=== PATIENT | male | born 1945 | race Caucasian/White ===

== ENCOUNTER 2016-10-16 00:51 | Emergency (ER) | payer MEDICARE ==
[~2016-10-16] VITALS: Ht 165.1 cm; Wt 62.1 kg
[2016-10-16] MEDS ORDERED: HYDROCHLOROTH12.5 M2 ORAL (01:04)
[2016-10-16] MEDS ORDERED: LIPITOR80 MG ORAL (01:04)
[2016-10-16] MEDS ORDERED: PERCOCET 10-321 EAC1 PO (01:04)
[2016-10-16] MEDS ORDERED: TAMSULOSIN HCL0.4 MG ORAL (01:04)
[2016-10-16] MEDS ORDERED: AVAPRO75 MG ORAL (01:04)
--- NOTE | 2016-10-16 01:27 | Emergency Room Report ---
History of Present Illness General Chief Complaint: Male Urogenital Problems Source: Patient Present Illness HPI This is a 71-year-old male with a history of BPH. He's taken Flomax. He presents with chief complaint urinary retention last 24 hours. Suprapubic pain. Similar symptom in the past that resolved with Flomax and hydrochlorothiazide. Unable to urinate. No fever or chills. No trauma. No nausea no vomiting. Worse with palpation. Nothing made it better. Allergies: Coded Allergies: LATEX (Verified Allergy, Unknown, Rash, 10/16/16) Patient History Past Medical History: see triage record, old chart reviewed Past Surgical History: other Pertinent Family History: none Social History: Denies: smoking Immunizations: other Reviewed Nursing Documentation: PMH: Agreed, PSxH: Agreed Nursing Documentation-PMH Hx Hypertension: Yes Hx COPD: Yes - emphysema Review of Systems Eye: Denies: blurred vision, eye pain ENT: Denies: ear pain, nose congestion, throat swelling Respiratory: Denies: cough, shortness of breath Cardiovascular: Denies: chest pain, palpitations Gastrointestinal: Denies: abdominal pain, diarrhea, nausea, vomiting Genitourinary: Reports: retention Musculoskeletal: Denies: back pain, joint pain Skin: Denies: rash Neurological: Denies: headache, numbness Endocrine: Denies: increased thirst, increased urine Hematologic/Lymphatic: Denies: easy bruising All Other Systems: negative except mentioned in HPI Physical Exam Vital Signs Date Time Temp Pulse Resp B/P Pulse Ox O2 Delivery O2 Flow Rate FiO2 10/16/16 00:56 98.1 88 18 177/81 94 vitals showed hypertension Sp02 EP Interpretation: reviewed, normal General Appearance: well appearing, no apparent distress, alert Head: normocephalic, atraumatic Eyes: bilateral eye EOMI, bilateral eye PERRL ENT: hearing grossly normal, normal pharynx Neck: full range of motion, supple, no meningismus Respiratory: chest non-tender, lungs clear, normal breath sounds Cardiovascular #1: regular rate, rhythm, no murmur Gastrointestinal: normal bowel sounds, non tender, no mass, no organomegaly, no bruit, non-distended, other - Distended bladder Musculoskeletal: back normal, gait/station normal, normal range of motion Psychiatric: mood/affect normal Skin: warm/dry Medical Decision Making Diagnostic Impression: Primary Impression: Urinary retention due to benign prostatic hyperplasia ER Course Patient presents with urinary retention. He felt better after Pratt. Ideally, he should have the Pratt in place. He refused. He said that he will followup with his doctor tomorrow. If he still has retention another Pratt will need to be placed. He understand this. Last Vital Signs Date Time Temp Pulse Resp B/P Pulse Ox O2 Delivery O2 Flow Rate FiO2 10/16/16 00:56 98.1 88 18 177/81 94 Status: improved Disposition: HOME, SELF-CARE Condition: Stable Additional Instructions: Followup with your Dr. in one to 2 days. Return if symptom worsen. VIKA FINNEGAN M.D. Oct 16, 2016 01:27
[2016-10-16 02:13] VITALS: BP 143/83
== END 2016-10-16 02:13 | disposition home or self-care (01) ==
LOC: EMR 01:18
DX: R33.8 Other retention of urine (principal); N40.1 Benign prostatic hyperplasia with lower urinary tract symptoms; I10 Essential (primary) hypertension; J43.9 Emphysema, unspecified; Z91.040 Latex allergy status
CPT/HCPCS: 99283

== ENCOUNTER 2017-03-26 11:58 | Inpatient (IN) | payer MEDICARE ==
[2017-03-26] VITALS (14 sets, daily range): BP systolic 107–199; BP diastolic 56–100
[~2017-03-26] VITALS: Ht 165.1 cm; Wt 62.6 kg
[~2017-03-26 11:58] MED LIST: AVAPRO75 MG ORAL; HYDROCHLOROTH12.5 M2 ORAL; LIPITOR80 MG ORAL; PERCOCET 10-321 EAC1 PO; TAMSULOSIN HCL0.4 MG ORAL
[2017-03-26] MEDS ORDERED: metroNIDAZOLE 500mg 100 ML IV STA (12:12)
[2017-03-26] MEDS ORDERED: Cefepime HCl 1 GM in NS 55 ML IV STA (12:12)
[2017-03-26] MEDS ORDERED: Hydromorphone 0.5mg/0.5ml inj IVP ONE (12:15)
[2017-03-26] MEDS ORDERED: NS 1000ml 1,900 ML IVLG ONE (12:15)
[2017-03-26] MEDS ORDERED: Cefepime 1gm vial ONE (12:23)
--- NOTE | 2017-03-26 12:48 | Emergency Room Report ---
History of Present Illness General Chief Complaint: Abdominal Pain Source: Patient, Family Member Present Illness HPI The patient presents with severe abdominal pain that began yesterday and is constant and worsening. Before coming to the emergency department he also developed rigors. The pain is severe at this time left lower quadrant not radiating. Anxiety and shortness of breath with that but denies any chest pain. The patient states that 40 years ago he had the same type of problems related to intense stress in his life. He's going through one of the most stressful times he's ever had at the moment. Denies dysuria. He moved his bowels this morning and they were normal. He feels nauseated but has not been vomiting. The patient has severe spinal stenosis and this is also contributing to the pain. In December, he had bladder stones surgically removed. Since that time, he's had intermittent lower abdominal pain. 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 Nursing Documentation: PMH: Agreed, PSxH: Agreed Nursing Documentation-PMH Hx Cardiac Problems: No Hx Hypertension: Yes Hx Pacemaker: No Hx Asthma: No Hx COPD: No Hx Diabetes: No Hx Cancer: No Hx Gastrointestinal Problems: Yes - diverticulities Hx Dialysis: No History Of Psychiatric Problem: No Hx Neurological Problems: No Hx Cerebrovascular Accident: No Hx Seizures: No Review of Systems All Other Systems: negative except mentioned in HPI Physical Exam Vital Signs Date Time Temp Pulse Resp B/P Pulse Ox O2 Delivery O2 Flow Rate FiO2 03/26/17 12:11 99.0 58 20 110/60 95 Room Air Sp02 EP Interpretation: reviewed, normal General Appearance: alert, GCS 15, moderate distress Head: normocephalic Eyes: bilateral eye PERRL, bilateral eye normal inspection ENT: dry mucus membranes Neck: supple Respiratory: lungs clear, normal breath sounds, other - tachypnea Cardiovascular #1: tachycardia Cardiovascular #2: 2+ radial (R) Gastrointestinal: normal inspection, no mass, non-distended, no rebound, guarding - LLQ, tenderness, scaphoid Musculoskeletal: back normal, normal range of motion Neurologic: alert, oriented x3, grossly normal Psychiatric: anxious Skin: normal inspection, other - hot to touch Procedures Critical Care Time Critical Care Time Total Critical Care Time: 30 min bedside evaluation and treatment excludes procedures (EKG). Reason for critical care: sepsis resuscitation, appendicitis - eval and to OR emergently Possible complications: hypotension, hypertension, ME, shock, arrhythmias, metabolic acidosis, end organ damage, respiratory failure. Interventions: Sepsis resuscitation, antibiotics, emergent surgical consultation Course: Pt presented with severe distress with rigors and abdominal pain. Sepsis identified and fluid resuscitation and antibiotics started. Abdominal source ID - CT obtained. Appendicitis. Emergent surgical consultation and plan for emergent operation. Consultations: nursing staff, EMS, family, surgeon Performed by: Dr. Bah Tolerated well condition = serious/critical Medical Decision Making Diagnostic Impression: Primary Impression: Abdominal pain Qualified Codes: R10.32 - Left lower quadrant pain Additional Impressions: Sepsis Qualified Codes: A41.9 - Sepsis, unspecified organism Appendicitis Qualified Codes: K35.3 - Acute appendicitis with localized peritonitis ER Course Patient presents with rigors and abdominal pain in extremis. Differential includes sepsis, diverticulitis, appendicitis, perforated viscus, renal stone, pyelonephritis and UTI. Emergent evaluation with EKG, chest x-ray and treatment with IV hydration and analgesia is undertaken. In addition blood cultures lactate urinalysis and a CMP and CBC are ordered. Antibiotics begun. Much better after meds and IV hydration. Initial lactate and WBC elevated. CT with appendicitis. Emergent surgical consultation. Contact Dr. Ortega. Repeat lactate improved. Discussion with family. Improved, but serious/critical. Admitted to OR. Laboratory Tests Test 03/26/17 12:30 03/26/17 15:20 White Blood Count 17.7 K/UL (4.8-10.8) H Red Blood Count 4.59 M/UL (4.70-6.10) L Hemoglobin 15.0 G/DL (14.2-18.0) Hematocrit 44.9 % (42.0-52.0) Mean Corpuscular Volume 98 FL (80-99) Mean Corpuscular Hemoglobin 32.7 PG (27.0-31.0) H Mean Corpuscular Hemoglobin Concent 33.4 G/DL (32.0-36.0) Red Cell Distribution Width 13.7 % (11.6-14.8) Platelet Count 230 K/UL (150-450) Mean Platelet Volume 8.3 FL (6.5-10.1) Neutrophils (%) (Auto) % (45.0-75.0) Lymphocytes (%) (Auto) % (20.0-45.0) Monocytes (%) (Auto) % (1.0-10.0) Eosinophils (%) (Auto) % (0.0-3.0) Basophils (%) (Auto) % (0.0-2.0) Differential Total Cells Counted 100 Neutrophils % (Manual) 92 % (45-75) H Lymphocytes % (Manual) 3 % (20-45) L Monocytes % (Manual) 1 % (1-10) Eosinophils % (Manual) 0 % (0-3) Basophils % (Manual) 0 % (0-2) Band Neutrophils 4 % (0-8) Platelet Estimate Adequate Platelet Morphology Normal Red Blood Cell Morphology Normal Prothrombin Time 10.2 SEC (9.30-11.50) Prothrombin Time INR 1.0 (0.9-1.1) PTT 27 SEC (23-33) Sodium Level 141 mEQ/L (135-145) Potassium Level 3.7 mEQ/L (3.4-4.9) Chloride Level 100 mEQ/L (98-107) Carbon Dioxide Level 25 mEQ/L (20-30) Anion Gap 16 (5-15) H Blood Urea Nitrogen 20 mg/dL (7-23) Creatinine 1.0 mg/dL (0.7-1.2) Estimate Glomerular Filtration Rate mL/min (>60) Glucose Level 130 mg/dL (74-106) H Lactic Acid Level 4.40 mmol/L (0.66-2.22) H 1.30 mmol/L (0.66-2.22) Calcium Level 9.7 mg/dL (8.6-10.2) Total Bilirubin 1.4 mg/dL (0.0-1.2) H Direct Bilirubin 0.3 mg/dL (0.1-0.3) Aspartate Amino Transferase (AST) 29 U/L (5-40) Alanine Aminotransferase (ALT) 27 U/L (3-41) Alkaline Phosphatase 97 U/L (40-129) Total Creatine Kinase 425 U/L (26-140) H Troponin I < 0.30 ng/mL (<=0.30) Pro-B-Type Natriuretic Peptide 278 pg/mL (0-125) H Total Protein 7.4 g/dL (6.6-8.7) Albumin 4.4 g/dL (3.5-5.2) Globulin 3.0 g/dL Albumin/Globulin Ratio 1.4 (1.0-2.7) Lipase 15 U/L (< 60) Urine Color Pale yellow Urine Appearance Clear Urine pH 5 (4.5-8.0) Urine Specific [place] 1.010 (1.005-1.035) Urine Protein Negative (NEGATIVE) Urine Glucose (UA) Negative (NEGATIVE) Urine Ketones Negative (NEGATIVE) Urine Occult Blood 2+ (NEGATIVE) H Urine Nitrite Negative (NEGATIVE) Urine Bilirubin Negative (NEGATIVE) Urine Urobilinogen Normal MG/DL (0.0-1.0) Urine Leukocyte Esterase 1+ (NEGATIVE) H Urine RBC 0-2 /HPF (0 - 0) H Urine WBC 2-4 /HPF (0 - 0) Urine Squamous Epithelial Cells Occasional /LPF Urine Bacteria Occasional /HPF (NONE) EKG Diagnostic Results Rate: normal Rhythm: NSR ST Segments: no acute changes Rhythm Strip Diag. Results EP Interpretation: yes Rhythm: NSR, no PVC's, no ectopy Chest X-Ray Diagnostic Results Chest X-Ray Diagnostic Results : Chest X-Ray Ordered: Yes # of Views/Limited/Complete: 1 View Indication: Shortness of Breath EP Interpretation: Yes Interpretation: no consolidation, no effusion, no pneumothorax, other - inc cor and ? nodule Impression: Other Interpreting ER Provider: Electronically signed by Tawanda Bah MD CT/MRI/US Diagnostic Results CT/MRI/US Diagnostic Results : Imaging Test Ordered: CT abd pelvis Impression Impression: Evidence of acute primary versus secondary appendicitis with thickening of the wall, luminal dilatation and periappendiceal inflammation. There is evidence of inflammation involving surrounding structures such as the tip of the cecum and the origin of the terminal ileum which may be secondary to the appendicitis. However , it is possible that appendicitis a secondary phenomenon due to colitis and/or terminal ileitis, such as Crohn's. This is difficult to distinguish on imaging alone. Please correlate clinically. No evidence of abscess. Atherosclerotic vascular disease Basilar atelectasis Gallstones Spondylosis prostate hypertrophy Last Vital Signs Date Time Temp Pulse Resp B/P Pulse Ox O2 Delivery O2 Flow Rate FiO2 03/26/17 21:53 66 27 132/71 96 Simple Mask 6.0 03/26/17 21:43 97.9 Status: improved Disposition: ADMITTED INPATIENT Condition: Critical Tawanda Bah M.D. Mar 26, 2017 12:48
[2017-03-26] MEDS ORDERED: SYMBICORT 80-10.2 G1 IH (12:58)
[2017-03-26 13:07] LABS: PROTHROMBIN TIME 10.2 SEC (9.30-11.50)
[2017-03-26 13:11] LABS: MEAN CORPUSCULAR HEMOGLOBIN 32.7 PG (27.0-31.0); MEAN CORPUSCULAR HGB CONC 33.4 G/DL (32.0-36.0); MEAN CORPUSCULAR VOLUME 98 FL (80-99); MEAN PLATELET VOLUME 8.3 FL (6.5-10.1); PLATELET COUNT 230 K/UL (150-450); RED BLOOD COUNT 4.59 M/UL (4.70-6.10); RED CELL DISTRIBUTION WIDTH 13.7 % (11.6-14.8); WHITE BLOOD COUNT 17.7 K/UL (4.8-10.8)
[2017-03-26 13:27] LABS: TROPONIN I < 0.30 ng/mL (<=0.30)
[2017-03-26 13:28] LABS: ALANINE AMINOTRANSFERASE 27 U/L (3-41); ANION GAP 16 (5-15); ASPARTATE AMINO TRANSFERASE 29 U/L (5-40); CALCIUM 9.7 mg/dL (8.6-10.2); CARBON DIOXIDE 25 mEQ/L (20-30); CHLORIDE 100 mEQ/L (98-107); POTASSIUM 3.7 mEQ/L (3.4-4.9); SODIUM 141 mEQ/L (135-145)
[2017-03-26 13:29] LABS: ALBUMIN/GLOBULIN RATIO 1.4 (1.0-2.7); HEMOLYSIS 7; LIPASE 15 U/L (< 60); TOTAL PROTEIN 7.4 g/dL (6.6-8.7)
--- NOTE | 2017-03-26 13:30 | Diagnostic Imaging Report ---
Indication: Dyspnea Comparison: None A single view chest radiograph was obtained. Findings: No definite infiltrate or pulmonary vascular congestion identified. The heart is normal in size. The aorta is mildly enlarged consistent with atherosclerotic vascular disease. The bones are osteopenic. There are degenerative changes of the thoracic spine. Impression: No acute disease
[2017-03-26 13:42] LABS: REFLEX LACTIC ACID YES OR NO YES
[2017-03-26 13:54] LABS: BILIRUBIN,DIRECT 0.3 mg/dL (0.1-0.3)
[2017-03-26 14:09] LABS: BAND NEUTROPHILS % (MANUAL) 4 % (0-8); BASOPHILS % (MANUAL) 0 % (0-2); EOSINOPHILS % (MANUAL) 0 % (0-3); LYMPHOCYTES % (MANUAL) 3 % (20-45); NEUTROPHILS % (MANUAL) 92 % (45-75); PLATELET ESTIMATE ADEQUATE; PLATELET MORPHOLOGY NORMAL; TOTAL CELLS COUNTED 100
--- NOTE | 2017-03-26 15:16 | Diagnostic Imaging Report ---
Indication: Abdominal pain Technique: Continuous helical transaxial imaging of the abdomen and pelvis was obtained from the lung bases to the pubic symphysis during intravenous contrast administration. Coronal 2-D reformats were also obtained. Study obtained in a Siemens sensation [address] Total Dose length Product (DLP): [address] Dose Index Volume (CTDIvol): 17 mGy Comparison: None Findings: Reticular densities noted focally at the right lung base. There could be pneumonia. Please correlate clinically. Basilar atelectasis is also likely present at both lung bases. Aorta is mildly calcified. There are gallstones present. There is no biliary ductal dilatation definitely identified. Bilateral renal cysts of varying size are noted. Spleen is normal in size. The pancreas is unremarkable. The appendix is abnormal with periappendiceal soft tissue stranding and luminal dilatation with the diameter measurement of about 16 mm. Findings consistent with acute appendicitis. The tip of the appendix is also abnormally with the wall thickening. There is also some inflammation and thickening of the wall of the terminal ileum. There is narrowing of intervertebral discs and accompanying endplate osteophyte formation. Hypertrophied facet joints also demonstrated. Prostate is enlarged measuring 4.9 x 4.6 x 5.6 cm. Impression: Evidence of acute primary versus secondary appendicitis with thickening of the wall, luminal dilatation and periappendiceal inflammation. There is evidence of inflammation involving surrounding structures such as the tip of the cecum and the origin of the terminal ileum which may be secondary to the appendicitis. However, it is possible that appendicitis a secondary phenomenon due to colitis and/or terminal ileitis, such as Crohn's. This is difficult to distinguish on imaging alone. Please correlate clinically. No evidence of abscess. Atherosclerotic vascular disease Basilar atelectasis Gallstones Spondylosis prostate hypertrophy The CT scanner at [facility] is accredited by the [employer] and the scans are performed using dose optimization techniques as appropriate to a performed exam including Automatic Exposure control.
[2017-03-26 15:38] LABS: APPEARANCE,URINE CLEAR; KETONES,URINE NEGATIVE (NEGATIVE); LEUKOCYTE ESTERASE ,URINE 1+ (NEGATIVE); NITRITE,URINE NEGATIVE (NEGATIVE); PH,URINE 5 (4.5-8.0); PROTEIN,URINE NEGATIVE (NEGATIVE); UROBILINOGEN,URINE NORMAL MG/DL (0.0-1.0)
[2017-03-26 15:55] LABS: BACTERIA,URINE OCCASIONAL /HPF; RBC,URINE 0-2 /HPF (0 - 0); SQUAMOUS EPITHELIAL CELL,UR OCCASIONAL /LPF (NONE/OCC)
--- NOTE | 2017-03-26 17:13 | Pre-Procedure Note/Attestation ---
Pre-Procedure Note/Attestation Complete Prior to Procedure Planned Procedure: not applicable Procedure Narrative: Exploratory laparoscopy, appendectomy possible open Indications for Procedure Pre-Operative Diagnosis: R/O acute appendicitis Attestation I attest that I discussed the nature of the procedure; its benefits; risks and complications; and alternatives (and the risks and benefits of such alternatives ), prior to the procedure, with the patient (or the patient's legal insurance follow up representative). I attest that, if there was a reasonable possibility of needing a blood transfusion, the patient (or the patient's legal insurance follow up representative) was given the [facility] standardized written summary, pursuant to the [place] Blood Safety Act ([place] Health and Safety Code # 1645, as amended). I attest that I re-evaluated the patient just prior to the surgery and that there has been no change in the patient's H&P, except as documented below: JAN POLLOCK Mar 26, 2017 17:13
[2017-03-26] MEDS ORDERED: Piperacillin/Tazobactam 3.375 GM in NS 110 ML IVPB ONE (17:15)
[2017-03-26] MEDS ORDERED: Zosyn 3.375gm inj ONE (17:56)
--- NOTE | 2017-03-26 18:00 | Consultation ---
DATE OF CONSULTATION: 03/26/2017 PREOPERATIVE CONSULTATION CONSULTING PHYSICIAN: Cecy Hardwick M.D. REFERRING PHYSICIAN: Tawanda Bah M.D. from emergency room. REASON FOR CONSULTATION: Abdominal pain. HISTORY OF PRESENT ILLNESS: This is a 72-year-old male who presented to emergency room complaining of two days' history of abdominal pain. He stated that the pain was initially in the periumbilical and lower abdomen, and it has localized more on the right side. He denied any vomiting. He had a normal bowel movement this morning. He claims that he had a fever, but he denies any cough, dysuria, or frequency. He claimed that in the last two to three weeks, he had discomfort in the abdomen. PAST MEDICAL HISTORY: He denies asthma, diabetes, cardiac, or renal diseases. He has a history of hypertension. PAST SURGICAL HISTORY: He had a procedure for the kidney stone. ALLERGIES: He denies allergies, but aspirin causes stomach pain. MEDICATIONS: Currently, he takes medicine for hypertension. Please see the medicine reconciliation form. SOCIAL HISTORY: This is a 72-year-old male, , no children. 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 Denied smoking cigarettes. Drinks occasionally. REVIEW OF SYSTEMS: Noncontributory. PHYSICAL EXAMINATION: GENERAL: The patient appears to be a well-developed, well-nourished, 72-year-old male, lying on the gurney, complaining of abdominal pain. HEENT: Head is normocephalic and atraumatic. Eyes, pupils are equal, round, and reactive to light. Mouth is clear. NECK: There is no palpable thyromegaly or adenopathy. CHEST: Clear to auscultation and percussion. HEART: There is no gallop or murmur. S1 and S2 are within normal limits. ABDOMEN: Soft and flat with tenderness and guarding at the right lower quadrant and suprapubic, but this is more pronounced at the right lower quadrant. There is no palpable organomegaly. Bowel sounds are audible. GENITAL: Normal. EXTREMITIES: Within normal limits. LABORATORY AND DIAGNOSTIC DATA: CBC has shown a WBC of 17,700 with a left shift. Chemistry is basically within normal limits except for total bilirubin, which is 1.4. CPK is 425. CAT scan of the abdomen has shown inflammation of the appendix with periappendiceal stranding and inflammation, but the patient has severe inflammation of the cecum and even the terminal ileum. I had a long discussion with the radiologist who feels that besides the inflammation of the appendicitis, the patient might have ileitis and colitis, and there is a possibility that the appendicitis is secondary to inflammation of the colon. IMPRESSION: Abdominal pain, rule out acute appendicitis. RECOMMENDATION: As I mentioned above, the patient has inflammation of the appendix and acute appendicitis, but there is a chance of having a colitis. The condition was explained to the patient. It was explained that we will perform exploratory laparoscopy and design the treatment on the basis of findings. He understood and agreed for it. The treatment is going to be according to the findings. The appendectomy will be performed, but if the cecum is severely inflamed, he might require the resection of this area too. The patient understood and agreed to plan. Cecy Hardwick M.D. DR: KATHLEEN JOB#: [id number] CC:
[2017-03-26] MEDS ORDERED: DuoNeb 0.5-3(2.5)mg/3ml neb ONE (18:35)
[2017-03-26] MEDS: DuoNeb 0.5-3(2.5)mg/3ml neb HHN SCH ×2 (18:45→23:00)
[2017-03-26] MEDS ORDERED: LR 1000ml 1,000 ML IVLG SCH (19:01)
--- NOTE | 2017-03-26 19:03 | Anethesia Preoperative Eval ---
Anesthesia Pre-op PMH/ROS General Date of Evaluation: Mar 26, 2017 Time of Evaluation: 18:11 Anesthesiologist: Lexi ASA Score: ASA 3 - Emergency Mallampati Score Class I : Soft palate, uvula, fauces, pillars visible Class II: Soft palate, uvula, fauces visible Class III: Soft palate, base of uvula visible Class IV: Only hard plate visible Mallampati Classification: Class II Surgeon: Ronen Diagnosis: Abd Pain Surgical Procedure: Laparoscopic Appendectomy Anesthesia History: none Social History: smoking Family History: no anesthesia problems Allergies: Coded Allergies: LATEX (Verified Allergy, Unknown, Rash, 10/16/16) Medications: see eMAR Past Medical History Cardiovascular: Reports: HTN Pulmonary: Reports: other - Smoker Gastrointestinal/Genitourinary: Reports: other - Diverticulitis, Abd Pain Musculoskeletal/Integumentary: Reports: other - Spinal Stenosis, 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 Exam Physician Exam Last Vital Signs Date Time Temp Pulse Resp B/P Pulse Ox O2 Delivery O2 Flow Rate FiO2 03/26/17 18:48 72 03/26/17 18:33 134/78 03/26/17 17:30 98.9 18 99 Room Air 03/26/17 14:06 2.0 Constitutional: NAD Neurologic: CN 2-12 intact Cardiovascular: RRR Respiratory: CTA Gastrointestinal: S/NT/ND Airway Exam Mallampati Score: Class II MO: limited ROM: limited Teeth: missing, intact Anesthesia Pre-op A/P Labs Hematology Test 03/26/17 12:30 White Blood Count 17.7 K/UL (4.8-10.8) H Red Blood Count 4.59 M/UL (4.70-6.10) L Hemoglobin 15.0 G/DL (14.2-18.0) Hematocrit 44.9 % (42.0-52.0) Mean Corpuscular Volume 98 FL (80-99) Mean Corpuscular Hemoglobin 32.7 PG (27.0-31.0) H Mean Corpuscular Hemoglobin Concent 33.4 G/DL (32.0-36.0) Red Cell Distribution Width 13.7 % (11.6-14.8) Platelet Count 230 K/UL (150-450) Mean Platelet Volume 8.3 FL (6.5-10.1) Neutrophils (%) (Auto) % (45.0-75.0) Lymphocytes (%) (Auto) % (20.0-45.0) Monocytes (%) (Auto) % (1.0-10.0) Eosinophils (%) (Auto) % (0.0-3.0) Basophils (%) (Auto) % (0.0-2.0) Differential Total Cells Counted 100 Neutrophils % (Manual) 92 % (45-75) H Lymphocytes % (Manual) 3 % (20-45) L Monocytes % (Manual) 1 % (1-10) Eosinophils % (Manual) 0 % (0-3) Basophils % (Manual) 0 % (0-2) Band Neutrophils 4 % (0-8) Platelet Estimate Adequate Platelet Morphology Normal Red Blood Cell Morphology Normal Coagulation Test 03/26/17 12:30 Prothrombin Time 10.2 SEC (9.30-11.50) Prothromb Time International Ratio 1.0 (0.9-1.1) Activated Partial Thromboplast Time 27 SEC (23-33) Chemistry Test 03/26/17 12:30 03/26/17 15:20 Sodium Level 141 mEQ/L (135-145) Potassium Level 3.7 mEQ/L (3.4-4.9) Chloride Level 100 mEQ/L (98-107) Carbon Dioxide Level 25 mEQ/L (20-30) Anion Gap 16 (5-15) H Blood Urea Nitrogen 20 mg/dL (7-23) Creatinine 1.0 mg/dL (0.7-1.2) Estimat Glomerular Filtration Rate mL/min (>60) Glucose Level 130 mg/dL (74-106) H Lactic Acid Level 4.40 mmol/L (0.66-2.22) H 1.30 mmol/L (0.66-2.22) Calcium Level 9.7 mg/dL (8.6-10.2) Total Bilirubin 1.4 mg/dL (0.0-1.2) H Direct Bilirubin 0.3 mg/dL (0.1-0.3) Aspartate Amino Transf (AST/SGOT) 29 U/L (5-40) Alanine Aminotransferase (ALT/SGPT) 27 U/L (3-41) Alkaline Phosphatase 97 U/L (40-129) Total Creatine Kinase 425 U/L (26-140) H Troponin I < 0.30 ng/mL (<=0.30) Pro-B-Type Natriuretic Peptide 278 pg/mL (0-125) H Total Protein 7.4 g/dL (6.6-8.7) Albumin 4.4 g/dL (3.5-5.2) Globulin 3.0 g/dL Albumin/Globulin Ratio 1.4 (1.0-2.7) Lipase 15 U/L (< 60) Risk Assessment & Plan Assessment: ASA 3E Plan: GA BIS, Glidescope Status Change Before Surgery: No Pre-Antibiotics Dru Grams Ancef IV Given Within 1 Hr of Incision: Yes Time Given: 18:36 Ken Elliott MD Mar 26, 2017 19:03
[2017-03-26] MEDS ORDERED: Oxycodone/Acetaminophen 5-325 ORAL PRN (19:15)
[2017-03-26] MEDS ORDERED: Atropine Inj 1mg/10ml Syr IV PRN (19:15)
[2017-03-26] MEDS ORDERED: Ketorolac 60mg Inj IV PRN (19:15)
[2017-03-26] MEDS ORDERED: Metoclopramide 10mg/2ml Inj IVP PRN ×2 (19:15→23:00)
[2017-03-26] MEDS ORDERED: Hydromorphone 0.5mg/0.5ml inj IVP PRN ×2 (19:15→23:00)
[2017-03-26] MEDS ORDERED: fentaNYL 100 mcg/2 mL IV PRN (19:15)
[2017-03-26] MEDS ORDERED: Ketorolac 30mg Inj IV PRN (19:15)
[2017-03-26] MEDS ORDERED: Meperidine 25mg/0.5ml Inj (FOR RIGORS ONLY) IV PRN (19:15)
[2017-03-26] MEDS ORDERED: DiphenhydrAMINE 50mg/ml Inj IVP PRN (19:15)
[2017-03-26] MEDS ORDERED: Norco 7.5mg/325mg tab ORAL PRN (19:15)
[2017-03-26] MEDS ORDERED: Norco 5mg/325mg tab ORAL PRN (19:15)
[2017-03-26] MEDS ORDERED: Midazolam 2mg/2ml Inj IVP PRN (19:15)
[2017-03-26] MEDS ORDERED: LORazepam Inj 2mg/ml 1ml IV PRN (19:15)
[2017-03-26] MEDS ORDERED: NS w/KCl 20mEq 1,000 ML IV SCH (19:30)
[2017-03-26] MEDS ORDERED: Bupivacaine w/Epi 0.5% 30ml Vial INJ ONE (19:58)
[2017-03-26] MEDS ORDERED: Glycopyrrolate 0.2mg/ml 1ml Vial ONE (20:00)
[2017-03-26] MEDS ORDERED: Neostigmine 1mg/ml 10ml Inj ONE (20:00)
[2017-03-26] MEDS ORDERED: LR 1000ml ONE (20:00)
[2017-03-26] MEDS ORDERED: Sterile Water Irrig 1000ml IRRIG ONE (20:00)
[2017-03-26] MEDS ORDERED: Lidocaine 1% MPF 10mg/ml 5ml ONE (20:00)
[2017-03-26] MEDS ORDERED: Propofol 10mg/ml 20ml IV ONE (20:00)
[2017-03-26] MEDS ORDERED: Dexamethasone 4mg/ml vial ONE (20:00)
[2017-03-26] MEDS ORDERED: Alfentanil 2ml Inj ONE (20:00)
[2017-03-26] MEDS ORDERED: Zemuron 50mg/5ml Inj IV ONE (20:00)
[2017-03-26] MEDS ORDERED: NS Irrig 1000ml ONE (20:00)
--- NOTE | 2017-03-26 20:50 | Immediate Post-Op Evaluation ---
Immediate Post-Op Evalulation Immediate Post-Op Evalulation Procedure: Laparoscopic Appendectomy Date of Evaluation: Mar 26, 2017 Time of Evaluation: 21:54 IV Fluids: 800 LR Blood Products: 0 Estimated Blood Loss: 10 Urinary Output: 0 Blood Pressure Systolic: 200 Blood Pressure Diastolic: 91 Pulse Rate: 103 Respiratory Rate: 16 O2 Sat by Pulse Oximetry: 99 Temperature (Fahrenheit): 97.9 Pain Score (1-10): 2 Nausea: No Vomiting: No Complications 0 Patient Status: awake, reacts, patent, extubated, none Hydration Status: adequate Dru Gram Ancef IV Given Within 1 Hr of Incision: Yes Time Given: 18:16 Ken Elliott MD Mar 26, 2017 20:50
--- NOTE | 2017-03-26 21:31 | Brief Operative Note ---
Immediate Post Operative Note Operative Note Pre-op Diagnosis: R/O acute appendicitis Post-op Diagnosis: Acute appendicitis Post-op Diagnosis: same as pre-op Findings: consistent w/pre-op dx studies Surgeon: MD Martha Build And Deployment Engineer: none Anesthesiologist: Dr. Elliott Anesthesia: general Specimen: yes Complications: none Condition: stable Estimated Blood Loss: minimal Drains: none Implant(s) used?: No JAN POLLOCK Mar 26, 2017 21:31
[2017-03-26] MEDS ORDERED: Piperacillin/Tazobactam 3.375 GM in D5W 110 ML IVPB SCH (22:00)
--- NOTE | 2017-03-26 22:15 | Pre-op HX & Phy Repo 2 SIG ---
DATE OF ADMISSION: 03/26/2017 REASON FOR ADMISSION: Probable appendicitis. HISTORY OF PRESENT ILLNESS: This 72-year-old white male presented to the emergency room with two days of progressive right lower quadrant abdominal pain with anorexia and nausea preceding. The pain worsened today and was more localized to the lower abdomen and periumbilical region, right greater than left. He had a normal bowel movement this morning, some nausea, but no vomiting. He had some fevers, but no other constitutional symptoms. The patient was seen in the emergency room where a CAT scan of the abdomen was obtained suggesting acute versus secondary appendicitis with involvement of the terminal ileum and colon. The possibility of a primary colitis could not be excluded. PAST MEDICAL HISTORY: COPD, hypertension, spinal stenosis, and hyperlipidemia. PAST SURGICAL HISTORY: Prior surgeries include rhinoplasty and right radial nerve surgery as well as cystoscopy for nephrolithiasis. ALLERGIES: Latex. MEDICATIONS: Prior to admission reviewed and reconciled. SOCIAL HISTORY: Quit smoking, 30+ pack years. No alcohol or substance abuse. He is and lives with family members. 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 FAMILY HISTORY: Noncontributory. REVIEW OF SYSTEMS: No fevers or chills. Some cough. No sputum production. No recent steroid use. He does have chronic back pain. He has not had any prior exertional chest pain or history of myocardial infarction, and has not had a stress test in the past. There is no history of blood clots in the legs . Denies any recurring history of kidney stones. There is no history of diabetes or thyroid disorder. He is on anti-lipid drugs. There is no history of seizure or stroke. There is no history of bleeding diatheses. PHYSICAL EXAMINATION: GENERAL: Well developed, well nourished, in no distress. VITAL SIGNS: Blood pressure 132/75, pulse 89, respiratory rate 18, and temperature 99.1. HEENT: Conjunctivae pink. Sclerae are anicteric. Oropharynx clear. Mucous membranes moist. NECK: Supple. Jugular venous pressure normal. LUNGS: Clear. CARDIAC: Regular rhythm and rate. Normal S1 and S2. No murmur, rub, or gallop. ABDOMEN: Soft with mild tenderness in the right lower quadrant. No guarding or rebound. SKIN: No skin changes. EXTREMITIES: Good pulses. No edema. NEUROLOGIC: Nonfocal. LABORATORY DATA: Lactic acid #1 is 4.4, subsequent lactic acid 1.3. Troponin negative. Pro-natriuretic peptide 258. Albumin 4.4. Liver function tests notable for mild elevation of total bilirubin to 1.4. Glucose 130, BUN 20, creatinine 1.0, and potassium 3.7. White count 17.7, hemoglobin 15. INR 1. Urinalysis, no active sediment. IMPRESSION: 1. Probable acute appendicitis versus possible colitis. 2. Sepsis. 3. Lactic acidosis. 4. Chronic obstructive pulmonary disease. 5. Hypertension. PLAN: 1. Broad-spectrum antibiotics for coverage of enteric pathogens. 2. DVT prophylaxis postoperatively. 3. Inhaled bronchodilators and pulmonary hygiene. 4. IV hydralazine p.r.n. for blood pressure elevation. 5. Proceed with exploratory laparotomy as discussed with surgeon with minimally increased perioperative cardiopulmonary risk under general anesthesia. Tawanda Ortega M.D. DR: LYNETTE JOB#: [id number] CC:
--- NOTE | 2017-03-26 22:45 | Operative Note - Dictated ---
DATE OF OPERATION: 03/26/2017 PREOPERATIVE DIAGNOSIS: Rule out acute appendicitis. POSTOPERATIVE DIAGNOSIS: Acute appendicitis. OPERATION: Laparoscopy appendectomy. COMPLICATION: None. SURGEON: Cecy Hardwick M.D. SCHEDULING REPRESENTATIVE: None. ANESTHESIA: General with endotracheal tube. ANESTHESIOLOGIST: Ken Elliott M.D. INDICATION: This is a 72-year-old male, who presented with abdominal pain for two days. The pain initially was periumbilical and then it localized at right lower quadrant. Physical examination showed tenderness and rebound tenderness with guarding. CBC showed a WBC of 17,700 with a left shift. CAT scan of the abdomen showed dilated and inflamed gall appendix with periappendiceal inflammation, but the patient had severe inflammation of the cecal and even the distal ileum. DESCRIPTION OF PROCEDURE: The patient was placed supine on the operating table and after general anesthesia with endotracheal tube, the abdomen was properly prepped and draped. Initially, a small incision was made above the umbilicus through which a Veress needle was introduced into the intraperitoneal cavity. This cavity was insufflated up to 15 mmHg and then the Veress needle was removed and a 5 mm trocar was placed in the intraperitoneal cavity through the incision above the umbilicus. A laparoscope and camera was introduced into the intraperitoneal cavity through the trocar above the umbilicus. Under direct vision, a 5 mm trocar was placed at the suprapubic area and a 12 mm trocar was placed at the left lower quadrant of the abdomen. Initially a rapid exploration was performed, which showed the diaphragms to be normal. The part of the stomach that could be seen was normal. The liver was normal. Gallbladder showed a kind of chronic cholecystitis, but there was no stone. The bowels were covered with omentum and the patient has a right inguinal hernia. An exploration of the right lower quadrant cavity was performed and the cecum was identified. Below the cecum it was noticed that the patient had extensive inflammatory changes with fibrin deposit and small amount of fluid. Further exploration showed the appendix in this area, which was severely distended and inflamed. The appendix and mesoappendix was exposed and isolated and then the mesoappendix was ligated and transected with the help of the JAQUELINE stapler and then the appendix was ligated and transected at the base with the help of another JAQUELINE stapler. The appendix was removed from the intraperitoneal abdominal cavity with the help of the Endo pouch. After removal of the appendix, the intraperitoneal cavity was thoroughly irrigated with antibiotic solution especially the right paracolic gutter and the pelvis. Another exploration was performed. There was no complication of bleeding. The trocars were removed under direct vision. The incisions were infiltrated with total of 30 mL of Marcaine 0.25% and then the incision on the fascia at the left lower quadrant was approximated with a [id number] suture of #0 Vicryl. The subcutaneous tissue was approximated with 4-0 chromic and the skin incisions were approximated with running subcuticular suture of 4-0 chromic. The patient tolerated the procedure very well and was transferred to recovery room in stable condition and extubated. The sponge and needle counts correct. Estimated blood loss was 5 mL. Condition of the patient at the end of procedure is stable. Cecy Hardwick M.D. DR: TERESITA JOB#: [id number] CC:
[2017-03-26] MEDS ORDERED: Acetaminophen 650 MG SUPP RECTAL PRN (23:00)
[2017-03-26 23:11] LABS: ABG ALLEN TEST POSITIVE; ABG BASE EXCESS 3.6; ABG PCO2 41.6 mmHg (35.0-45.0)
[2017-03-26] MEDS: D5 1/2NS w/KCl 20mEq 1,000 ML IV SCH (23:48)
[2017-03-26] MEDS: Piperacillin/Tazobactam 3.375 GM in D5W 110 ML IVPB SCH (23:48)
[2017-03-27 01:00] VITALS: BP 120/70
[2017-03-27] MEDS: DuoNeb 0.5-3(2.5)mg/3ml neb HHN SCH ×6 (03:00→23:00)
[2017-03-27 04:00] VITALS: BP 118/67
[2017-03-27 05:09] LABS: MEAN CORPUSCULAR HEMOGLOBIN 32.4 PG (27.0-31.0); MEAN CORPUSCULAR HGB CONC 32.6 G/DL (32.0-36.0); MEAN CORPUSCULAR VOLUME 100 FL (80-99); MEAN PLATELET VOLUME 9.8 FL (6.5-10.1); PLATELET COUNT 182 K/UL (150-450); RED BLOOD COUNT 3.61 M/UL (4.70-6.10); RED CELL DISTRIBUTION WIDTH 13.7 % (11.6-14.8); WHITE BLOOD COUNT 16.5 K/UL (4.8-10.8)
[2017-03-27 05:34] LABS: ALANINE AMINOTRANSFERASE 45 U/L (3-41); ALBUMIN/GLOBULIN RATIO 1.3 (1.0-2.7); ANION GAP 9 (5-15); ASPARTATE AMINO TRANSFERASE 37 U/L (5-40); CALCIUM 7.9 mg/dL (8.6-10.2); CARBON DIOXIDE 23 mEQ/L (20-30); CHLORIDE 105 mEQ/L (98-107); CREATININE 0.9 mg/dL (0.7-1.2); HEMOLYSIS 6; SODIUM 137 mEQ/L (135-145); TOTAL PROTEIN 5.6 g/dL (6.6-8.7)
[2017-03-27 05:36] LABS: THYROID STIMULATING HORMONE 0.419 uIU/mL (0.300-4.500)
[2017-03-27] MEDS: Piperacillin/Tazobactam 3.375 GM in D5W 110 ML IVPB SCH ×3 (05:39→21:28)
[2017-03-27] MEDS: Heparin 5000 units/ml inj SUBQ SCH ×3 (05:41→21:28)
[2017-03-27 07:36] LABS: BAND NEUTROPHILS % (MANUAL) 0 % (0-8); BASOPHILS % (MANUAL) 1 % (0-2); EOSINOPHILS % (MANUAL) 0 % (0-3); LYMPHOCYTES % (MANUAL) 2 % (20-45); NEUTROPHILS % (MANUAL) 95 % (45-75); PLATELET ESTIMATE ADEQUATE; PLATELET MORPHOLOGY NORMAL; TOTAL CELLS COUNTED 100
[2017-03-27 08:00] VITALS: BP 140/73
[2017-03-27] MEDS: D5 1/2NS w/KCl 20mEq 1,000 ML IV SCH (09:03)
[2017-03-27] MEDS: Pantoprazole Inj IVP SCH (09:03)
[2017-03-27] MEDS ORDERED: Piperacillin/Tazobactam 3.375 GM in D5W 110 ML IVPB SCH ×2 (10:00→14:00)
--- NOTE | 2017-03-27 11:18 | Diagnostic Imaging Report ---
Indication: Dyspnea Comparison: 03/26/17 A single view chest radiograph was obtained. Findings: Interstitial markings are prominent bilaterally. Findings may be due to pneumonitis. Interstitial edema is possible. Heart appears slightly enlarged. Lung volumes are low. Impression: Interstitial pneumonitis versus edema. Please correlate clinically.
[2017-03-27 11:54] VITALS: BP 124/82
--- NOTE | 2017-03-27 13:15 | Progress Note ---
DATE: 03/27/2017 INTERNAL MEDICINE AND CARDIOLOGY PROGRESS NOTE SUBJECTIVE: The patient is status post appendectomy last night. No complications noted. He does not have pain, shortness of breath, nausea, or vomiting at this time. PHYSICAL EXAMINATION: VITAL SIGNS: Blood pressure is 140/73, pulse rate 75, and respiratory rate 20. Afebrile. NECK: Supple. LUNGS: With few rales. CARDIAC: Regular rhythm and rate. Normal S1 and S2 with no murmur. ABDOMEN: Slightly distended. Mildly tender in the right lower quadrant. No guarding. No signs of bleeding. EXTREMITIES: Without edema. Chest x-ray reveals interstitial disease versus edema. LABORATORY AND DIAGNOSTIC DATA: BUN 17 and creatinine 0.9. Potassium 4 and glucose 217. Albumin is 3.2. White count is 16.5. IMPRESSION: 1. Appendicitis, status post appendectomy. 2. Abdominal sepsis. 3. Leukocytosis. 4. No clinical signs of acute congestive heart failure. 5. Resolved lactic acidosis. 6. Mild protein calorie malnutrition. 7. Hyperglycemia. 8. Hypertension. PLAN: Adjust IV fluids. . IV antibiotics. DVT prophylaxis. Diet per surgeon once bowel function recovers. IV antihypertensives until tolerating oral intake. Glucose monitoring with insulin by sliding scale. Tawanda Ortega M.D. DR: BETO JOB#: [id number] CC:
[2017-03-27] MEDS: NS w/KCl 20mEq 1,000 ML IV SCH ×3 (13:16→23:43)
--- NOTE | 2017-03-27 13:24 | 48 Hour Post Anesthesia Eval ---
Post Anesthesia Evaluation Procedure: Laparoscopic Appendectomy Date of Evaluation: Mar 27, 2017 Time of Evaluation: 13:23 Blood Pressure Systolic: 136 0: 78 Pulse Rate: 72 Respiratory Rate: 20 Temperature (Fahrenheit): 97.6 O2 Sat by Pulse Oximetry: 98 Airway: patent Nausea: No Vomiting: No Pain Intensity: 3 Hydration Status: adequate Cardiopulmonary Status: stable Mental Status/LOC: patient returned to baseline Follow-up Care/Observations: n/a Post-Anesthesia Complications: none Follow-up care needed: N/A FRITZ MCCLURE M.D. Mar 27, 2017 13:24
--- NOTE | 2017-03-27 13:24 | General Surgery Progress Note ---
General Surgery-Progress Note Subjective Symptoms: improved Objective Last 24 Hour Vital Signs Date Time Temp Pulse Resp B/P Pulse Ox O2 Delivery O2 Flow Rate FiO2 03/27/17 12:00 74 03/27/17 11:54 98.1 80 18 124/82 98 Nasal Cannula 2.0 03/27/17 11:18 77 16 100 Nasal Cannula 3.0 03/27/17 11:02 77 17 97 Nasal Cannula 2.0 03/27/17 08:00 98.1 75 20 140/73 97 Nasal Cannula 2.0 03/27/17 08:00 64 03/27/17 07:47 78 15 100 Nasal Cannula 3.0 03/27/17 07:36 75 16 97 Nasal Cannula 3.0 03/27/17 07:36 75 16 Nasal Cannula 3.0 03/27/17 04:00 98.8 67 18 118/67 98 Nasal Cannula 2.0 03/27/17 04:00 65 03/27/17 03:09 Nasal Cannula 03/27/17 03:08 Nasal Cannula 03/27/17 01:00 97.9 65 18 120/70 99 Nasal Cannula 3.0 03/27/17 00:00 87 03/26/17 23:49 98.1 64 18 107/56 92 Nasal Cannula 2.0 03/26/17 23:14 Room Air 03/26/17 23:14 Room Air 03/26/17 23:00 98.0 69 26 123/59 95 Nasal Cannula 3.0 03/26/17 22:45 72 23 124/74 95 Simple Mask 6.0 03/26/17 22:30 74 33 152/83 95 Simple Mask 6.0 03/26/17 22:15 74 37 135/66 95 Simple Mask 6.0 03/26/17 22:00 66 27 135/66 96 Simple Mask 6.0 03/26/17 21:53 66 27 132/71 96 Simple Mask 6.0 03/26/17 21:48 75 33 197/87 96 Simple Mask 6.0 03/26/17 21:43 97.9 110 32 199/100 98 Simple Mask 6.0 03/26/17 21:43 103 16 99 03/26/17 19:57 99.1 75 18 116/65 93 Room Air 03/26/17 19:00 76 18 99 Room Air 03/26/17 18:48 72 03/26/17 18:45 67 18 99 Room Air 2.0 03/26/17 18:45 67 18 Room Air 03/26/17 18:33 134/78 03/26/17 17:30 98.9 79 18 142/60 99 Room Air 03/26/17 15:30 98.1 75 18 130/66 98 03/26/17 14:06 99.1 89 18 132/75 96 Nasal Cannula 2.0 I&O Intake and Output 03/26/17 03/27/17 19:00 07:00 Intake Total 1735.875 ml Output Total 300 ml 560 ml Balance -300 ml 1175.875 ml Intake IV Total 1735.875 ml Output Urine Total 300 ml 550 ml Estimated Blood Loss 10 ml # Bowel Movements 1 Dressing: dry Drains: none Respiratory: clear Abdomen: soft, flat, tenderness, absent bowel sounds Extremities: no tenderness Laboratory Tests Test 03/26/17 15:20 03/26/17 22:37 03/27/17 03:35 Urine Color Pale yellow Urine Appearance Clear Urine pH 5 (4.5-8.0) Urine Specific [place] 1.010 (1.005-1.035) Urine Protein Negative (NEGATIVE) Urine Glucose (UA) Negative (NEGATIVE) Urine Ketones Negative (NEGATIVE) Urine Occult Blood 2+ (NEGATIVE) H Urine Nitrite Negative (NEGATIVE) Urine Bilirubin Negative (NEGATIVE) Urine Urobilinogen Normal MG/DL (0.0-1.0) Urine Leukocyte Esterase 1+ (NEGATIVE) H Urine RBC 0-2 /HPF (0 - 0) H Urine WBC 2-4 /HPF (0 - 0) Urine Squamous Epithelial Cells Occasional /LPF Urine Bacteria Occasional /HPF (NONE) Lactic Acid Level 1.30 mmol/L (0.66-2.22) Arterial Blood pH 7.341 (7.350-7.450) Arterial Blood Partial Pressure CO2 41.6 mmHg (35.0-45.0) Arterial Blood Partial Pressure O2 135.0 mmHg (75.0-100.0) H Arterial Blood HCO3 22.0 mmol/L (22.0-26.0) Arterial Blood Oxygen Saturation 98.3 % (92.0-98.0) H Arterial Blood Base Excess 3.6 Gautam Test Positive White Blood Count 16.5 K/UL (4.8-10.8) H Red Blood Count 3.61 M/UL (4.70-6.10) L Hemoglobin 11.7 G/DL (14.2-18.0) L Hematocrit 35.9 % (42.0-52.0) L Mean Corpuscular Volume 100 FL (80-99) H Mean Corpuscular Hemoglobin 32.4 PG (27.0-31.0) H Mean Corpuscular Hemoglobin Concent 32.6 G/DL (32.0-36.0) Red Cell Distribution Width 13.7 % (11.6-14.8) Platelet Count 182 K/UL (150-450) Mean Platelet Volume 9.8 FL (6.5-10.1) Neutrophils (%) (Auto) % (45.0-75.0) Lymphocytes (%) (Auto) % (20.0-45.0) Monocytes (%) (Auto) % (1.0-10.0) Eosinophils (%) (Auto) % (0.0-3.0) Basophils (%) (Auto) % (0.0-2.0) Differential Total Cells Counted 100 Neutrophils % (Manual) 95 % (45-75) H Lymphocytes % (Manual) 2 % (20-45) L Monocytes % (Manual) 2 % (1-10) Eosinophils % (Manual) 0 % (0-3) Basophils % (Manual) 1 % (0-2) Band Neutrophils 0 % (0-8) Platelet Estimate Adequate Platelet Morphology Normal Red Blood Cell Morphology Normal Sodium Level 137 mEQ/L (135-145) Potassium Level 4.0 mEQ/L (3.4-4.9) Chloride Level 105 mEQ/L (98-107) Carbon Dioxide Level 23 mEQ/L (20-30) Anion Gap 9 (5-15) Blood Urea Nitrogen 17 mg/dL (7-23) Creatinine 0.9 mg/dL (0.7-1.2) Estimat Glomerular Filtration Rate mL/min (>60) Glucose Level 217 mg/dL (74-106) H Calcium Level 7.9 mg/dL (8.6-10.2) L Total Bilirubin 0.9 mg/dL (0.0-1.2) Aspartate Amino Transf (AST/SGOT) 37 U/L (5-40) Alanine Aminotransferase (ALT/SGPT) 45 U/L (3-41) H Alkaline Phosphatase 107 U/L (40-129) Total Protein 5.6 g/dL (6.6-8.7) L Albumin 3.2 g/dL (3.5-5.2) L Globulin 2.4 g/dL Albumin/Globulin Ratio 1.3 (1.0-2.7) Thyroid Stimulating Hormone (TSH) 0.419 uIU/mL (0.300-4.500) Assessment Post-op Diagnosis Acute appendicitis Plan Additional Comments continue IV antibiotics JAN POLLOCK Mar 27, 2017 13:24
[2017-03-27 16:00] VITALS: BP 129/71
[2017-03-27] MEDS: HYDROmorphone 1mg/ml Carpuject IVP PRN (17:07)
[2017-03-27 20:00] VITALS: BP 136/74
[2017-03-28] VITALS (7 sets, daily range): BP systolic 133–196; BP diastolic 79–103
[2017-03-28] MEDS: DuoNeb 0.5-3(2.5)mg/3ml neb HHN SCH ×6 (03:00→23:15)
[2017-03-28 04:46] LABS: BASOPHILS % (AUTO) 0.3 % (0.0-2.0); EOSINOPHILS % (AUTO) 0.4 % (0.0-3.0); LYMPHOCYTES % (AUTO) 11.4 % (20.0-45.0); MEAN CORPUSCULAR HEMOGLOBIN 31.7 PG (27.0-31.0); MEAN CORPUSCULAR HGB CONC 32.4 G/DL (32.0-36.0); MEAN CORPUSCULAR VOLUME 98 FL (80-99); MEAN PLATELET VOLUME 7.8 FL (6.5-10.1); MONOCYTES % (AUTO) 8.2 % (1.0-10.0); NEUTROPHILS % (AUTO) 79.7 % (45.0-75.0); PLATELET COUNT 194 K/UL (150-450); RED CELL DISTRIBUTION WIDTH 13.7 % (11.6-14.8)
[2017-03-28 05:07] LABS: ALANINE AMINOTRANSFERASE 31 U/L (3-41); ALBUMIN/GLOBULIN RATIO 1.3 (1.0-2.7); ANION GAP 8 (5-15); ASPARTATE AMINO TRANSFERASE 21 U/L (5-40); CALCIUM 8.4 mg/dL (8.6-10.2); CARBON DIOXIDE 25 mEQ/L (20-30); CHLORIDE 109 mEQ/L (98-107); CREATININE 0.9 mg/dL (0.7-1.2); HEMOLYSIS 6; MAGNESIUM 1.7 mg/dL (1.7-2.5); POTASSIUM 3.5 mEQ/L (3.4-4.9); SODIUM 142 mEQ/L (135-145); TOTAL PROTEIN 5.9 g/dL (6.6-8.7)
[2017-03-28] MEDS: Piperacillin/Tazobactam 3.375 GM in D5W 110 ML IVPB SCH ×3 (05:57→21:22)
[2017-03-28] MEDS: Heparin 5000 units/ml inj SUBQ SCH ×3 (05:58→22:47)
[2017-03-28] MEDS: Pantoprazole Inj IVP SCH (08:57)
[2017-03-28] MEDS: HYDROmorphone 1mg/ml Carpuject IVP PRN ×2 (10:23→13:23)
[2017-03-28] MEDS: NS w/KCl 20mEq 1,000 ML IV SCH ×2 (11:24→23:00)
[2017-03-28] MEDS ORDERED: Irbesartan 150mg tablet ORAL ONE (12:00)
[2017-03-28] MEDS: Tamsulosin 0.4mg cap ORAL SCH ×2 (12:47→18:32)
--- NOTE | 2017-03-28 13:32 | Infectious Diseases Prog Note ---
Assessment/Plan Assessment/Plan Full consult dictated: A) 1) gram variable rods bacteremia 2) may be gram neg vs diphtheroids - d/w microbiology 3) s/p appendectomy with sepsis and leukocytosis 4) pmh noted P) 1) zosyn, add vancomycin until final identification of blood culture 2) watch labs 3) communicated with Dr. Ortega 4) thanks Subjective Allergies: Coded Allergies: LATEX (Verified Allergy, Unknown, Rash, 10/16/16) Objective Vital Signs Last 24 Hour Vital Signs Date Time Temp Pulse Resp B/P Pulse Ox O2 Delivery O2 Flow Rate FiO2 03/28/17 12:47 136/66 03/28/17 12:00 73 03/28/17 11:35 78 18 99 Nasal Cannula 1.0 03/28/17 11:28 71 18 96 Room Air 03/28/17 08:58 181/96 03/28/17 08:00 79 03/28/17 08:00 97.9 79 20 181/96 96 Nasal Cannula 2.0 03/28/17 07:35 89 18 97 Nasal Cannula 1.0 03/28/17 07:23 71 18 92 Room Air 03/28/17 07:22 96 Nasal Cannula 2.0 03/28/17 07:21 Nasal Cannula 2.0 03/28/17 04:00 72 03/28/17 03:41 97.7 63 16 157/82 97 Nasal Cannula 2.0 03/28/17 03:11 Nasal Cannula 03/28/17 03:09 Nasal Cannula 03/28/17 00:00 98.0 66 18 152/79 99 Nasal Cannula 2.0 03/28/17 00:00 71 03/27/17 23:28 Nasal Cannula 03/27/17 23:27 Nasal Cannula 03/27/17 20:00 76 03/27/17 20:00 98.1 84 18 136/74 96 Nasal Cannula 2.0 03/27/17 19:30 81 16 100 Nasal Cannula 2.0 03/27/17 19:27 Nasal Cannula 2.0 28 03/27/17 19:26 97 Nasal Cannula 2.0 28 03/27/17 19:26 Nasal Cannula 2.0 28 03/27/17 19:25 77 16 Nasal Cannula 3.0 03/27/17 19:25 77 17 96 Nasal Cannula 2.0 03/27/17 17:37 98.1 03/27/17 16:00 98.1 80 18 129/71 95 Nasal Cannula 03/27/17 16:00 69 03/27/17 15:23 88 16 100 Nasal Cannula 2.0 03/27/17 15:11 85 17 95 Nasal Cannula 2.0 Height (Feet): 5 Height (Inches): 5.00 Weight (Pounds): 138 Microbiology Date/Time Source Procedure Growth Status 03/26/17 12:30 Blood Blood Culture - Preliminary Resulted 03/26/17 12:30 Blood Blood Culture - Preliminary Resulted Laboratory Tests Test 03/28/17 04:30 White Blood Count 13.0 K/UL (4.8-10.8) H Red Blood Count 3.70 M/UL (4.70-6.10) L Hemoglobin 11.7 G/DL (14.2-18.0) L Hematocrit 36.2 % (42.0-52.0) L Mean Corpuscular Volume 98 FL (80-99) Mean Corpuscular Hemoglobin 31.7 PG (27.0-31.0) H Mean Corpuscular Hemoglobin Concent 32.4 G/DL (32.0-36.0) Red Cell Distribution Width 13.7 % (11.6-14.8) Platelet Count 194 K/UL (150-450) Mean Platelet Volume 7.8 FL (6.5-10.1) Neutrophils (%) (Auto) 79.7 % (45.0-75.0) H Lymphocytes (%) (Auto) 11.4 % (20.0-45.0) L Monocytes (%) (Auto) 8.2 % (1.0-10.0) Eosinophils (%) (Auto) 0.4 % (0.0-3.0) Basophils (%) (Auto) 0.3 % (0.0-2.0) Sodium Level 142 mEQ/L (135-145) Potassium Level 3.5 mEQ/L (3.4-4.9) Chloride Level 109 mEQ/L (98-107) H Carbon Dioxide Level 25 mEQ/L (20-30) Anion Gap 8 (5-15) Blood Urea Nitrogen 14 mg/dL (7-23) Creatinine 0.9 mg/dL (0.7-1.2) Estimat Glomerular Filtration Rate mL/min (>60) Glucose Level 110 mg/dL (74-106) #H Calcium Level 8.4 mg/dL (8.6-10.2) L Magnesium Level 1.7 mg/dL (1.7-2.5) Total Bilirubin 0.6 mg/dL (0.0-1.2) Aspartate Amino Transf (AST/SGOT) 21 U/L (5-40) Alanine Aminotransferase (ALT/SGPT) 31 U/L (3-41) Alkaline Phosphatase 81 U/L (40-129) Pro-B-Type Natriuretic Peptide 506 pg/mL (0-125) H Total Protein 5.9 g/dL (6.6-8.7) L Albumin 3.4 g/dL (3.5-5.2) L Globulin 2.5 g/dL Albumin/Globulin Ratio 1.3 (1.0-2.7) Current Medications Medications (Trade) Dose Ordered Sig/Irish Route PRN Reason Start Time Stop Time Status Last Admin Dose Admin Acetaminophen (Tylenol) 650 mg Q4H PRN RECTAL T>100.5 03/26/17 23:00 04/25/17 22:59 Albuterol/ Ipratropium (DuoNeb 0.5-3(2.5)mg/3ml) 3 ml Q4HRT HHN 03/26/17 19:00 03/31/17 18:59 03/28/17 11:27 Heparin Sodium (Porcine) (Heparin 5000 units/ml) 5,000 units EVERY 8 HOURS SUBQ 03/27/17 06:00 04/26/17 05:59 03/28/17 05:58 Hydralazine HCl (Apresoline) 10 mg Q4H PRN IV SBP above 150mmHg 03/26/17 18:45 04/25/17 18:44 03/28/17 08:58 Hydromorphone HCl (Dilaudid) 0.5 mg Q3H PRN IVP Pain Score 1-3 03/26/17 23:00 04/02/17 22:59 Hydromorphone HCl (Dilaudid) 1 mg Q3H PRN IVP pain score 4-6 03/26/17 23:00 04/02/17 22:59 03/28/17 10:23 Hydromorphone HCl (Dilaudid) 2 mg Q3H PRN IVP Severe Pain (Pain Scale 7-10) 03/27/17 16:02 04/02/17 18:44 Irbesartan (Avapro) 150 mg DAILY ORAL 03/29/17 09:00 04/28/17 08:59 Metoclopramide HCl (Reglan) 10 mg Q6H PRN IVP Nausea & Vomiting 03/26/17 23:00 04/25/17 22:59 Ondansetron HCl (Zofran) 4 mg Q6H PRN IVP Nausea & Vomiting 03/26/17 23:00 04/25/17 22:59 Pantoprazole 40 mg 40 mg DAILY IVP 03/27/17 09:00 04/26/17 08:59 03/28/17 08:57 Piperacillin Sod/ Tazobactam Sod/ Dextrose (Zosyn/D5W) 110 ml @ 27.5 mls/hr EVERY 8 HOURS IVPB 03/27/17 14:00 04/03/17 13:59 03/28/17 05:57 Sodium Chloride 1,000 ml @ 100 mls/hr Q10H IV 03/27/17 11:00 04/26/17 10:59 03/28/17 11:24 Tamsulosin HCl (Flomax) 0.4 mg BID ORAL 03/28/17 12:00 04/27/17 11:59 03/28/17 12:47 HANNAH LONG Mar 28, 2017 13:32
--- NOTE | 2017-03-28 15:48 | General Surgery Progress Note ---
General Surgery-Progress Note Subjective Symptoms: improved, BM Objective Last 24 Hour Vital Signs Date Time Temp Pulse Resp B/P Pulse Ox O2 Delivery O2 Flow Rate FiO2 03/28/17 15:22 85 20 93 Room Air 03/28/17 12:47 136/66 03/28/17 12:00 97.9 89 20 133/99 95 Nasal Cannula 2.0 03/28/17 12:00 73 03/28/17 11:35 78 18 99 Nasal Cannula 1.0 03/28/17 11:28 71 18 96 Room Air 03/28/17 08:58 181/96 03/28/17 08:00 79 03/28/17 08:00 97.9 79 20 181/96 96 Nasal Cannula 2.0 03/28/17 07:35 89 18 97 Nasal Cannula 1.0 03/28/17 07:23 71 18 92 Room Air 03/28/17 07:22 96 Nasal Cannula 2.0 03/28/17 07:21 Nasal Cannula 2.0 03/28/17 04:00 72 03/28/17 03:41 97.7 63 16 157/82 97 Nasal Cannula 2.0 03/28/17 03:11 Nasal Cannula 03/28/17 03:09 Nasal Cannula 03/28/17 00:00 98.0 66 18 152/79 99 Nasal Cannula 2.0 03/28/17 00:00 71 03/27/17 23:28 Nasal Cannula 03/27/17 23:27 Nasal Cannula 03/27/17 20:00 76 03/27/17 20:00 98.1 84 18 136/74 96 Nasal Cannula 2.0 03/27/17 19:30 81 16 100 Nasal Cannula 2.0 03/27/17 19:27 Nasal Cannula 2.0 28 03/27/17 19:26 97 Nasal Cannula 2.0 28 03/27/17 19:26 Nasal Cannula 2.0 28 03/27/17 19:25 77 16 Nasal Cannula 3.0 03/27/17 19:25 77 17 96 Nasal Cannula 2.0 03/27/17 17:37 98.1 03/27/17 16:00 98.1 80 18 129/71 95 Nasal Cannula 03/27/17 16:00 69 I&O Intake and Output 03/27/17 03/28/17 19:00 07:00 Intake Total 2380.0 ml 1431.775 ml Output Total 200 ml Balance 2380.0 ml 1231.775 ml Intake Oral 1770 ml 150 ml IV Total 610.0 ml 1281.775 ml Output Urine Total 200 ml # Voids 1 2 # Bowel Movements 2 3 Dressing: dry Respiratory: clear Abdomen: soft, flat, tenderness, present bowel sounds Extremities: no tenderness Laboratory Tests Test 03/28/17 04:30 White Blood Count 13.0 K/UL (4.8-10.8) H Red Blood Count 3.70 M/UL (4.70-6.10) L Hemoglobin 11.7 G/DL (14.2-18.0) L Hematocrit 36.2 % (42.0-52.0) L Mean Corpuscular Volume 98 FL (80-99) Mean Corpuscular Hemoglobin 31.7 PG (27.0-31.0) H Mean Corpuscular Hemoglobin Concent 32.4 G/DL (32.0-36.0) Red Cell Distribution Width 13.7 % (11.6-14.8) Platelet Count 194 K/UL (150-450) Mean Platelet Volume 7.8 FL (6.5-10.1) Neutrophils (%) (Auto) 79.7 % (45.0-75.0) H Lymphocytes (%) (Auto) 11.4 % (20.0-45.0) L Monocytes (%) (Auto) 8.2 % (1.0-10.0) Eosinophils (%) (Auto) 0.4 % (0.0-3.0) Basophils (%) (Auto) 0.3 % (0.0-2.0) Sodium Level 142 mEQ/L (135-145) Potassium Level 3.5 mEQ/L (3.4-4.9) Chloride Level 109 mEQ/L (98-107) H Carbon Dioxide Level 25 mEQ/L (20-30) Anion Gap 8 (5-15) Blood Urea Nitrogen 14 mg/dL (7-23) Creatinine 0.9 mg/dL (0.7-1.2) Estimat Glomerular Filtration Rate mL/min (>60) Glucose Level 110 mg/dL (74-106) #H Calcium Level 8.4 mg/dL (8.6-10.2) L Magnesium Level 1.7 mg/dL (1.7-2.5) Total Bilirubin 0.6 mg/dL (0.0-1.2) Aspartate Amino Transf (AST/SGOT) 21 U/L (5-40) Alanine Aminotransferase (ALT/SGPT) 31 U/L (3-41) Alkaline Phosphatase 81 U/L (40-129) Pro-B-Type Natriuretic Peptide 506 pg/mL (0-125) H Total Protein 5.9 g/dL (6.6-8.7) L Albumin 3.4 g/dL (3.5-5.2) L Globulin 2.5 g/dL Albumin/Globulin Ratio 1.3 (1.0-2.7) Assessment Post-op Diagnosis Acute appendicitis Plan Additional Comments continue IV Antibiotics JAN POLLOCK Mar 28, 2017 15:48
[2017-03-28] MEDS ORDERED: traMADol 50mg tab ORAL PRN (16:00)
[2017-03-28] MEDS ORDERED: Tubing IV Secondary IV ONE (16:53)
[2017-03-28] MEDS ORDERED: NS 275ml ONE (16:53)
[2017-03-28] MEDS ORDERED: Vancomycin 1250mg/D5W 275ml IVPB SCH ×2 (18:00)
[2017-03-28] MEDS ORDERED: HYDROmorphone 1mg/ml Carpuject IVP PRN (18:15)
[2017-03-29 00:02] VITALS: BP 159/86
[2017-03-29] MEDS: DuoNeb 0.5-3(2.5)mg/3ml neb HHN SCH ×6 (02:54→23:01)
[2017-03-29 04:00] VITALS: BP 152/85
[2017-03-29 05:09] LABS: MEAN CORPUSCULAR HEMOGLOBIN 33.4 PG (27.0-31.0); MEAN CORPUSCULAR HGB CONC 33.8 G/DL (32.0-36.0); MEAN CORPUSCULAR VOLUME 99 FL (80-99); MEAN PLATELET VOLUME 8.8 FL (6.5-10.1); PLATELET COUNT 206 K/UL (150-450); RED BLOOD COUNT 3.28 M/UL (4.70-6.10); RED CELL DISTRIBUTION WIDTH 13.8 % (11.6-14.8); WHITE BLOOD COUNT 10.6 K/UL (4.8-10.8)
[2017-03-29] MEDS: Piperacillin/Tazobactam 3.375 GM in D5W 110 ML IVPB SCH ×3 (05:47→22:35)
[2017-03-29] MEDS: Heparin 5000 units/ml inj SUBQ SCH ×3 (05:50→22:35)
[2017-03-29] MEDS ORDERED: Albuterol ud Inhalation ONE (06:17)
[2017-03-29] MEDS ORDERED: Ipratropium 0.02% Inh Soln 2.5ml UD ONE (06:17)
[2017-03-29 08:00] VITALS: BP 115/69
[2017-03-29] MEDS: Tamsulosin 0.4mg cap ORAL SCH ×2 (08:24→18:34)
[2017-03-29] MEDS ORDERED: Irbesartan 150mg tablet ORAL SCH (09:00)
[2017-03-29] MEDS: NS w/KCl 20mEq 1,000 ML IV SCH ×3 (10:37→22:35)
[2017-03-29] MEDS ORDERED: DuoNeb 0.5-3(2.5)mg/3ml neb HHN SCH (11:00)
[2017-03-29 11:26] VITALS: BP 118/65
--- NOTE | 2017-03-29 12:43 | General Surgery Progress Note ---
General Surgery-Progress Note Subjective Symptoms: improved, BM Additional Comments had positive blood culture Objective Last 24 Hour Vital Signs Date Time Temp Pulse Resp B/P Pulse Ox O2 Delivery O2 Flow Rate FiO2 03/29/17 11:26 97.9 87 20 118/65 92 Room Air 03/29/17 10:51 86 18 97 Nasal Cannula 2.0 03/29/17 10:41 84 18 96 Room Air 03/29/17 08:23 115/69 03/29/17 08:00 98.1 83 18 115/69 96 Nasal Cannula 2.0 03/29/17 08:00 76 03/29/17 07:26 85 18 97 Nasal Cannula 2.0 03/29/17 07:16 84 18 96 Room Air 03/29/17 07:16 Nasal Cannula 2.0 03/29/17 07:16 96 Nasal Cannula 2.0 03/29/17 04:01 98.1 03/29/17 04:00 98.1 90 18 152/85 95 Nasal Cannula 2.0 03/29/17 04:00 82 03/29/17 03:20 92 18 97 Nasal Cannula 2.0 03/29/17 02:55 92 18 96 Room Air 03/29/17 00:02 98.1 89 20 159/86 95 Nasal Cannula 2.0 03/29/17 00:00 89 03/28/17 23:39 98.1 03/28/17 23:30 88 18 97 Nasal Cannula 2.0 03/28/17 23:15 84 18 96 Nasal Cannula 2.0 03/28/17 20:45 98.1 03/28/17 20:00 83 03/28/17 19:59 189/103 03/28/17 19:52 98.1 85 20 189/103 98 Nasal Cannula 2.0 03/28/17 19:48 97.3 98 20 196/98 95 Room Air 03/28/17 19:11 87 18 97 Nasal Cannula 2.0 03/28/17 19:01 Nasal Cannula 2.0 03/28/17 19:01 97 Nasal Cannula 2.0 03/28/17 19:00 85 18 96 Nasal Cannula 2.0 03/28/17 16:00 97.7 89 22 183/99 95 Nasal Cannula 2.0 03/28/17 16:00 78 03/28/17 15:32 88 20 97 Nasal Cannula 1.0 03/28/17 15:22 85 20 93 Room Air 03/28/17 12:47 136/66 I&O Intake and Output 03/28/17 03/29/17 19:00 07:00 Intake Total 1500 ml 1527.5763 ml Output Total 280 ml 1675 ml Balance 1220 ml -147.4237 ml Intake Oral 300 ml IV Total 1200 ml 1527.5763 ml Output Urine Total 280 ml 1675 ml # Voids 1 # Bowel Movements 1 Dressing: dry Drains: none Respiratory: clear Abdomen: soft, flat, present bowel sounds Extremities: no tenderness Laboratory Tests Test 03/29/17 04:25 White Blood Count 10.6 K/UL (4.8-10.8) Red Blood Count 3.28 M/UL (4.70-6.10) L Hemoglobin 10.9 G/DL (14.2-18.0) L Hematocrit 32.4 % (42.0-52.0) L Mean Corpuscular Volume 99 FL (80-99) Mean Corpuscular Hemoglobin 33.4 PG (27.0-31.0) H Mean Corpuscular Hemoglobin Concent 33.8 G/DL (32.0-36.0) Red Cell Distribution Width 13.8 % (11.6-14.8) Platelet Count 206 K/UL (150-450) Mean Platelet Volume 8.8 FL (6.5-10.1) Neutrophils (%) (Auto) % (45.0-75.0) Lymphocytes (%) (Auto) % (20.0-45.0) Monocytes (%) (Auto) % (1.0-10.0) Eosinophils (%) (Auto) % (0.0-3.0) Basophils (%) (Auto) % (0.0-2.0) Assessment Post-op Diagnosis Acute appendicitis Plan Additional Comments Continue IV Antibiotics JAN POLLOCK Mar 29, 2017 12:43
[2017-03-29] MEDS ORDERED: HYDROmorphone 1mg/ml Carpuject IVP PRN (14:00)
--- NOTE | 2017-03-29 15:07 | Infectious Diseases Prog Note ---
Assessment/Plan Assessment/Plan A) 1) gram variable rods bacteremia - identification pending 2) may be gram neg vs diphtheroids - d/w microbiology 3) s/p appendectomy with sepsis and leukocytosis 4) pmh noted P) 1) zosyn, add vancomycin until final identification of blood culture 2) watch labs 3) communicated with Dr. Ortega 4) d/w surgery and pt Subjective Constitutional: Denies: fatigue Respiratory: Denies: shortness of breath Cardiovascular: Denies: chest pain Gastrointestinal/Abdominal: Denies: diarrhea, nausea, vomiting Genitourinary: Denies: dysuria, hematuria Neurologic: Denies: headache Hematologic: Denies: bleeding Musculoskeletal: Denies: pain Allergies: Coded Allergies: LATEX (Verified Allergy, Unknown, Rash, 10/16/16) Objective Vital Signs Last 24 Hour Vital Signs Date Time Temp Pulse Resp B/P Pulse Ox O2 Delivery O2 Flow Rate FiO2 03/29/17 15:01 87 18 97 Nasal Cannula 2.0 03/29/17 14:51 87 18 96 Room Air 03/29/17 12:00 86 03/29/17 11:26 97.9 87 20 118/65 92 Room Air 03/29/17 10:51 86 18 97 Nasal Cannula 2.0 03/29/17 10:41 84 18 96 Room Air 03/29/17 08:23 115/69 03/29/17 08:00 98.1 83 18 115/69 96 Nasal Cannula 2.0 03/29/17 08:00 76 03/29/17 07:26 85 18 97 Nasal Cannula 2.0 03/29/17 07:16 84 18 96 Room Air 03/29/17 07:16 Nasal Cannula 2.0 03/29/17 07:16 96 Nasal Cannula 2.0 03/29/17 04:01 98.1 03/29/17 04:00 98.1 90 18 152/85 95 Nasal Cannula 2.0 03/29/17 04:00 82 03/29/17 03:20 92 18 97 Nasal Cannula 2.0 03/29/17 02:55 92 18 96 Room Air 03/29/17 00:02 98.1 89 20 159/86 95 Nasal Cannula 2.0 03/29/17 00:00 89 03/28/17 23:39 98.1 03/28/17 23:30 88 18 97 Nasal Cannula 2.0 28 03/28/17 23:15 84 18 96 Nasal Cannula 2.0 28 03/28/17 20:45 98.1 03/28/17 20:00 83 03/28/17 19:59 189/103 03/28/17 19:52 98.1 85 20 189/103 98 Nasal Cannula 2.0 03/28/17 19:48 97.3 98 20 196/98 95 Room Air 03/28/17 19:11 87 18 97 Nasal Cannula 2.0 03/28/17 19:01 Nasal Cannula 2.0 28 03/28/17 19:01 97 Nasal Cannula 2.0 28 03/28/17 19:00 85 18 96 Nasal Cannula 2.0 28 03/28/17 16:00 97.7 89 22 183/99 95 Nasal Cannula 2.0 03/28/17 16:00 78 03/28/17 15:32 88 20 97 Nasal Cannula 1.0 03/28/17 15:22 85 20 93 Room Air Height (Feet): 5 Height (Inches): 5.00 Weight (Pounds): 138 General Appearance: no acute distress HEENT: normocephalic, atraumatic, anicteric, mucous membranes moist, PERRL, EOMI, pharynx normal, supple, no JVD Respiratory/Chest: lungs clear, normal breath sounds, no respiratory distress, no accessory muscle use Cardiovascular: normal rate, regular rhythm, no gallop/murmur, no JVD Abdomen: normal bowel sounds, soft, non tender, no organomegaly, non distended Laboratory Tests Test 03/29/17 04:25 White Blood Count 10.6 K/UL (4.8-10.8) Red Blood Count 3.28 M/UL (4.70-6.10) L Hemoglobin 10.9 G/DL (14.2-18.0) L Hematocrit 32.4 % (42.0-52.0) L Mean Corpuscular Volume 99 FL (80-99) Mean Corpuscular Hemoglobin 33.4 PG (27.0-31.0) H Mean Corpuscular Hemoglobin Concent 33.8 G/DL (32.0-36.0) Red Cell Distribution Width 13.8 % (11.6-14.8) Platelet Count 206 K/UL (150-450) Mean Platelet Volume 8.8 FL (6.5-10.1) Neutrophils (%) (Auto) % (45.0-75.0) Lymphocytes (%) (Auto) % (20.0-45.0) Monocytes (%) (Auto) % (1.0-10.0) Eosinophils (%) (Auto) % (0.0-3.0) Basophils (%) (Auto) % (0.0-2.0) Current Medications Medications (Trade) Dose Ordered Sig/Irish Route PRN Reason Start Time Stop Time Status Last Admin Dose Admin Acetaminophen (Tylenol) 650 mg Q4H PRN ORAL Mild Pain/Temp > 100.5 03/29/17 12:00 04/28/17 11:59 Albuterol/ Ipratropium (DuoNeb 0.5-3(2.5)mg/3ml) 3 ml Q4HRT HHN 03/29/17 15:00 04/03/17 14:59 03/29/17 14:51 Heparin Sodium (Porcine) (Heparin 5000 units/ml) 5,000 units EVERY 8 HOURS SUBQ 03/29/17 14:00 04/28/17 13:59 03/29/17 14:48 Hydralazine HCl (Apresoline) 10 mg Q4H PRN IV SBP above 150mmHg 03/29/17 14:00 04/28/17 13:59 Hydromorphone HCl (Dilaudid) 1 mg Q4H PRN IVP Severe Breakthru Pain (>7) 03/29/17 14:00 04/05/17 13:59 Irbesartan (Avapro) 150 mg DAILY ORAL 03/30/17 09:00 04/29/17 08:59 Metoclopramide HCl (Reglan) 10 mg Q6H PRN IVP Nausea & Vomiting 03/29/17 17:00 04/28/17 16:59 Ondansetron HCl (Zofran) 4 mg Q6H PRN IVP Nausea & Vomiting 03/29/17 16:00 04/28/17 15:59 Oxycodone/ Acetaminophen (Percocet 10/325) 1 tab Q4H PRN ORAL Moderate Pain (Pain Scale 4-6) 03/29/17 14:00 04/05/17 13:59 Oxycodone/ Acetaminophen (Percocet 10/325) 2 tab Q4H PRN ORAL Severe Pain (Pain Scale 7-10) 03/29/17 14:00 04/05/17 13:59 Pantoprazole (Protonix) 40 mg DAILY ORAL 03/30/17 09:00 04/29/17 08:59 Piperacillin Sod/ Tazobactam Sod 3.375 gm/Dextrose 110 ml @ 27.5 mls/hr EVERY 8 HOURS IVPB 03/29/17 14:00 04/05/17 13:59 03/29/17 14:47 Sodium Chloride 1,000 ml @ 100 mls/hr Q10H IV 03/29/17 12:00 04/28/17 11:59 Tamsulosin HCl (Flomax) 0.4 mg BID ORAL 03/29/17 18:00 04/28/17 17:59 Vancomycin HCl (Vanco rx to dose) 1 ea DAILY PRN MISC Per rx protocol 03/29/17 12:00 04/28/17 11:59 Vancomycin HCl/ Dextrose (Vancomycin/D5W) 275 ml @ 183.333 mls/hr Q24H IVPB 03/29/17 18:00 04/03/17 17:59 HANNAH LONG Mar 29, 2017 15:07
[2017-03-29 15:30] VITALS: BP 128/62
[2017-03-29] MEDS ORDERED: Metoclopramide 10mg/2ml Inj IVP PRN (17:00)
[2017-03-29] MEDS: Vancomycin 1.25 GM in D5W 275 ML IVPB SCH (18:36)
[2017-03-29 20:00] VITALS: BP 149/85
[2017-03-30] VITALS: BP 151/76
--- NOTE | 2017-03-30 02:00 | Consultation ---
DATE OF CONSULTATION: 03/29/2017 NOTE: "POOR AUDIO QUALITY" INFECTIOUS DISEASES CONSULTATION I saw the patient on 03/28/2017 and official dictation is 03/29/2017. CONSULTING PHYSICIAN: Zach Rivera M.D. ATTENDING PHYSICIAN: Tawanda Ortega M.D. REASON FOR CONSULTATION: Sepsis and bacteremia. The patient's chief complaint coming to the hospital is sepsis and abdominal pain. HISTORY OF PRESENT ILLNESS: This is a very pleasant 72-year-old male, who comes in to the [facility] for abdominal pain. The patient had a CT scan of the abdomen and pelvis, which was consisted with appendicitis with thickening of the luminal dilatation and periappendiceal inflammation. The patient was seen by Surgery and had subsequent appendectomy. The patient now has gram variable blood cultures and discussed with Microbiology. It is unclear if it is a gram negative or diphtheroid, but at this point we do not have a final culture result. Infectious diseases consultation was requested for antibiotic management. The patient is on vancomycin and Zosyn. Case was discussed with Dr. Tawanda Ortega and also case was discussed with Dr. Hardwick also. The patient will be continued on antibiotics pending final workup. MAR was noted. Orders were noted. Notes were reviewed. PAST MEDICAL HISTORY: The patient has a past medical history of COPD, hypertension, history of spinal stenosis, and history of hyperlipidemia. He has hypertension, but no diabetes. He has a history of rhinoplasty and radial nerve surgery. He does have a history of diverticular disease per the records. He also came in with hyperglycemia and mild protein malnutrition. Please see past medical history in medical order. ALLERGIES: He has latex allergy and antibiotic allergies. MEDICATIONS: Upon reviewing the MAR, he is on the following medications: Avapro, Protonix, vancomycin, Zosyn, Flomax, Reglan, Zofran, breathing treatments, heparin, hydralazine, which is Apresoline, Dilaudid, IV fluids, Tylenol, and oxycodone. FAMILY HISTORY: Noncontributory. No mention of exposure to tuberculosis. SOCIAL HISTORY: Past smoker. No alcohol or drug use. He quit smoking. REVIEW OF SYSTEMS: Constitutional: Denies weakness and fatigue. He has postoperative pain that has improved today. No fever, chills, night sweats, or weight loss. Head And Neck: No thrush or dysphagia. Cardiac: Noted some chest pain. Gastrointestinal: No nausea, vomiting, or diarrhea. He did come in with abdominal pain, but this has improved. Pulmonary: No congestion, shortness of breath, or hemoptysis. Genitourinary: No dysuria or frequency. Skin: No rash or itching. Extremities: No extremity pain. Neurologic: No seizures. PHYSICAL EXAMINATION: VITAL SIGNS: Temperature is 97.9 degrees, pulse rate 87, respiratory rate 20, and blood pressure , and saturation 92% on room air. GENERAL: Alert, responsive, and in no acute distress. He is oriented x3. HEAD AND NECK: Oral exam, no thrush. Eye exam, no icterus. Normocephalic. No facial droop. Neck is supple. HEART: Regular. No gallop or murmur. ABDOMEN: Soft. Positive bowel sounds. Incision is clean and dry. LUNGS: Clear bilaterally. No rhonchi or rales. SKIN: No rash or dermatitis. MUSCULOSKELETAL: No effusion or contractures. Lower extremities without cellulitis. PERIPHERAL VASCULAR: No evidence of cyanosis or gangrene. GENITOURINARY: He has no Pratt. LINE: Line site without phlebitis. NEUROLOGIC: Intact and nonfocal. Alert and oriented x3. LABORATORY DATA: Creatinine is 0.9. White count on admission is 17.7, now it is 10.6, hemoglobin is 10.9. UA was 2 to 4 white blood cells. Blood cultures in both sets gram-variable rods. I discussed the myocardial pending possible gram-negative versus diphtheroid, but final identification is pending. IMAGING STUDIES: Reviewed. Chest x-ray, the patient shows interstitial pneumonitis versus edema. Chest x-ray was negative. CT scan of the abdomen and pelvis was consistent with appendicitis. Report was noted. ASSESSMENT AND PLAN: 1. The patient has sepsis, likely secondary to appendicitis. The patient also has possible bacteremia with gram-variable rods in the blood cultures. I will await identification of blood cultures. I will continue vancomycin and Zosyn pending final blood culture results. Check surveillance blood cultures. Check followup labs. Watch creatinine closely. Continue per Dr. Awan and Surgery. The patient is status post appendectomy for the appendicitis. The patient's leukocytosis improved. Continue treatment with vancomycin and Zosyn for sepsis secondary to appendicitis and possible bacteremia. 2. The patient has history of hypertension. Continue blood pressure . 3. Pain management. 4. Surgery followup. 5. Chronic obstructive pulmonary disease. 6. Past smoker. 7. Spinal stenosis. 8. Hyperlipidemia. 9. History of hyperglycemia and mild protein malnutrition. 10. History of multiple surgeries. 11. Allergy to latex. 12. Social, he is former smoker. 13. MAR was noted. 14. Case was discussed with RN. 15. Family history is noncontributory. 16. Case was discussed with Dr. . 17. Case was discussed with Surgery. 18. Case was discussed with patient and questions were answered. Zach Rivera M.D. DR: FLORESITA JOB#: [id number] CC:
[2017-03-30 02:34] LABS: APPEARANCE,URINE CLEAR; KETONES,URINE NEGATIVE (NEGATIVE); LEUKOCYTE ESTERASE ,URINE 2+ (NEGATIVE); NITRITE,URINE NEGATIVE (NEGATIVE); PH,URINE 5 (4.5-8.0); PROTEIN,URINE 2+ (NEGATIVE); UROBILINOGEN,URINE NORMAL MG/DL (0.0-1.0)
[2017-03-30 02:46] LABS: BACTERIA,URINE FEW /HPF; RBC,URINE TNTC /HPF (0 - 0); WBC,URINE 20-30 /HPF (0 - 0)
[2017-03-30] MEDS: DuoNeb 0.5-3(2.5)mg/3ml neb HHN SCH ×7 (03:00→22:37)
--- NOTE | 2017-03-30 03:45 | Progress Note ---
DATE: 03/29/2017 CARDIOLOGY AND INTERNAL MEDICINE PROGRESS SUBJECTIVE: The patient has significant abdominal pain last night, as well as urinary retention up to 1 liter. Bladder scan residual noted. Pratt catheter was placed. Pain improved with analgesics as well. Today, he has improved. He has low-grade temperatures. Otherwise, no new complaint. OBJECTIVE: VITAL SIGNS: Blood pressure 150/80, pulse 93, respiratory rate 24, and oxygen saturation 94%. LUNGS: Diminished breath sounds. HEART: Regular rhythm and rate. Normal S1 and S2 with a fourth heart sound. ABDOMEN: Soft. Mild tenderness in right lower quadrant. Surgical site is clean and dry. EXTREMITIES: No edema. LABORATORY DATA: White count down to 10.6 and hemoglobin 10.9. Blood culture is gram-negative gregory. IMPRESSION: 1. Acute appendicitis status post appendectomy. 2. Gram-negative gregory bacteremia. 3. Sepsis. 4. Leukocytosis, improved. 5. Hypertensive heart disease with accelerated blood pressure, resolved. 6. Chronic diastolic congestive heart failure compensated. 7. Urinary retention secondary to benign prostatic hypertrophy now with indwelling Pratt catheter. 8. Postoperative anemia and mild protein-calorie malnutrition. PLAN: 1. Discontinue IV fluids. 2. Continue antimicrobials per Infectious Disease business continuity consultant. 3. DVT and stress ulcer prophylaxis. 4. Pain control. 5. Continue indwelling Pratt catheter. 6. Continue tamsulosin. 7. Loading trial to follow. 8. Await final blood culture results. 9. Check urine studies. 10. Follow up chemistry and CBC. 11. Regular diet now per surgeon. Tawanda Ortega M.D. DR: EDGAR JOB#: [id number] CC:
--- NOTE | 2017-03-30 03:45 | Progress Note ---
DATE: 03/28/2017 INTERNAL MEDICINE AND CARDIOLOGY PROGRESS NOTE SUBJECTIVE: The patient is postop day #2. He has worsening pain. Positive blood cultures have been noted from admission. Gram-negative rods growing. He still has low-grade fevers. OBJECTIVE: VITAL SIGNS: Blood pressure 136/66, pulse 89, respiratory rate 20, and afebrile. Although, episodes of blood pressure up to 181/96 were noted earlier. NECK: Supple. LUNGS: Clear. CARDIAC: Regular rhythm and rate. Normal S1 and S2 with a fourth heart sound. ABDOMEN: Soft. Surgical sites without drainage. There is tenderness in the right lower quadrant. No guarding. EXTREMITIES: Without edema. LABORATORY DATA: White count 13 and hemoglobin 11.7. Sodium 142, potassium 3.5, magnesium 1.7, BUN 14, creatinine 0.9, and bicarbonate 25. Pro-natriuretic peptide is 500. Albumin is 3.4. IMPRESSION: 1. Status post appendectomy for acute appendicitis. 2. Gram-negative gregory bacteremia. 3. Mild protein-calorie malnutrition. 4. Chronic diastolic congestive heart failure. 5. Hypertensive heart disease with episodes of accelerated hypertension. 6. Borderline potassium and magnesium levels. 7. Sepsis with leukocytosis, improved. 8. Lactic acidosis, resolved. PLAN: 1. Infectious Disease consultation for antibiotic adjustment as needed. 2. Titration of antihypertensives. 3. Monitor volume status. 4. Adjust IV fluids as oral intake improves. 5. Pain control. 6. Stress ulcer and DVT prophylaxis. 7. Follow up laboratory studies. Tawanda Ortega M.D. DR: EDGAR JOB#: [id number] CC:
[2017-03-30 04:00] VITALS: BP 155/80
[2017-03-30] MEDS: Piperacillin/Tazobactam 3.375 GM in D5W 110 ML IVPB SCH ×3 (05:45→22:27)
[2017-03-30] MEDS: Heparin 5000 units/ml inj SUBQ SCH ×3 (05:50→22:28)
[2017-03-30 08:00] VITALS: BP 154/84
[2017-03-30 08:14] LABS: BASOPHILS % (AUTO) 0.6 % (0.0-2.0); EOSINOPHILS % (AUTO) 1.8 % (0.0-3.0); LYMPHOCYTES % (AUTO) 14.6 % (20.0-45.0); MEAN CORPUSCULAR HEMOGLOBIN 31.7 PG (27.0-31.0); MEAN CORPUSCULAR HGB CONC 32.1 G/DL (32.0-36.0); MEAN CORPUSCULAR VOLUME 99 FL (80-99); MEAN PLATELET VOLUME 7.9 FL (6.5-10.1); MONOCYTES % (AUTO) 10.7 % (1.0-10.0); NEUTROPHILS % (AUTO) 72.4 % (45.0-75.0); PLATELET COUNT 210 K/UL (150-450); RED BLOOD COUNT 3.27 M/UL (4.70-6.10); RED CELL DISTRIBUTION WIDTH 13.7 % (11.6-14.8); WHITE BLOOD COUNT 7.4 K/UL (4.8-10.8)
[2017-03-30 08:29] LABS: ANION GAP 8 (5-15); CALCIUM 8.4 mg/dL (8.6-10.2); CARBON DIOXIDE 22 mEQ/L (20-30); CHLORIDE 110 mEQ/L (98-107); HEMOLYSIS 5; POTASSIUM 3.6 mEQ/L (3.4-4.9); SODIUM 140 mEQ/L (135-145)
[2017-03-30] MEDS: Tamsulosin 0.4mg cap ORAL SCH ×2 (08:36→18:18)
[2017-03-30] MEDS: Irbesartan 150mg tablet ORAL SCH (08:36)
[2017-03-30 12:00] VITALS: BP 155/90
[2017-03-30] MEDS ORDERED: Tubing IV Secondary IV ONE (13:59)
[2017-03-30] MEDS ORDERED: NS 275ml ONE (13:59)
--- NOTE | 2017-03-30 14:00 | General Surgery Progress Note ---
General Surgery-Progress Note Subjective Symptoms: improved, BM Objective Last 24 Hour Vital Signs Date Time Temp Pulse Resp B/P Pulse Ox O2 Delivery O2 Flow Rate FiO2 03/30/17 10:55 72 18 99 Nasal Cannula 03/30/17 10:47 28 03/30/17 10:47 75 20 96 Nasal Cannula 2.0 03/30/17 08:36 177/75 03/30/17 08:02 66 18 96 28 03/30/17 08:01 66 18 96 28 03/30/17 08:00 63 03/30/17 08:00 97.9 70 20 154/84 93 Simple Mask 03/30/17 08:00 28 03/30/17 07:58 66 18 97 Nasal Cannula 2.0 03/30/17 07:58 Nasal Cannula 2.0 03/30/17 07:58 97 Nasal Cannula 2.0 03/30/17 04:00 98.4 77 20 155/80 97 Nasal Cannula 2.0 03/30/17 04:00 77 03/30/17 03:11 Nasal Cannula 03/30/17 03:10 Nasal Cannula 2.0 03/30/17 00:00 98.4 82 24 151/76 94 Room Air 03/30/17 00:00 88 03/29/17 23:08 90 16 99 Room Air 03/29/17 23:01 83 16 98 Room Air 03/29/17 20:00 95 03/29/17 20:00 99.0 93 24 149/85 94 Room Air 03/29/17 19:21 88 18 96 Room Air 03/29/17 19:13 96 Room Air 03/29/17 19:13 Room Air 03/29/17 19:13 85 18 97 Room Air 03/29/17 16:00 98 03/29/17 15:30 98.2 94 20 128/62 93 Room Air 03/29/17 15:01 87 18 97 Nasal Cannula 2.0 03/29/17 14:51 87 18 96 Room Air I&O Intake and Output 03/29/17 03/30/17 19:00 07:00 Intake Total 762.5 ml Output Total 600 ml 600 ml Balance 162.5 ml -600 ml Intake Oral 480 ml IV Total 282.5 ml Output Urine Total 600 ml 600 ml Dressing: dry Drains: none Respiratory: clear Abdomen: soft, flat, non-tender, present bowel sounds Extremities: no tenderness Laboratory Tests Test 03/30/17 01:20 03/30/17 07:15 Urine Color Pale yellow Urine Appearance Clear Urine pH 5 (4.5-8.0) Urine Specific [place] 1.010 (1.005-1.035) Urine Protein 2+ (NEGATIVE) H Urine Glucose (UA) Negative (NEGATIVE) Urine Ketones Negative (NEGATIVE) Urine Occult Blood 5+ (NEGATIVE) H Urine Nitrite Negative (NEGATIVE) Urine Bilirubin Negative (NEGATIVE) Urine Urobilinogen Normal MG/DL (0.0-1.0) Urine Leukocyte Esterase 2+ (NEGATIVE) H Urine RBC Tntc /HPF (0 - 0) H Urine WBC 20-30 /HPF (0 - 0) H Urine Squamous Epithelial Cells None /LPF (NONE/OCC) Urine Bacteria Few /HPF (NONE) White Blood Count 7.4 K/UL (4.8-10.8) Red Blood Count 3.27 M/UL (4.70-6.10) L Hemoglobin 10.4 G/DL (14.2-18.0) L Hematocrit 32.4 % (42.0-52.0) L Mean Corpuscular Volume 99 FL (80-99) Mean Corpuscular Hemoglobin 31.7 PG (27.0-31.0) H Mean Corpuscular Hemoglobin Concent 32.1 G/DL (32.0-36.0) Red Cell Distribution Width 13.7 % (11.6-14.8) Platelet Count 210 K/UL (150-450) Mean Platelet Volume 7.9 FL (6.5-10.1) Neutrophils (%) (Auto) 72.4 % (45.0-75.0) Lymphocytes (%) (Auto) 14.6 % (20.0-45.0) L Monocytes (%) (Auto) 10.7 % (1.0-10.0) H Eosinophils (%) (Auto) 1.8 % (0.0-3.0) Basophils (%) (Auto) 0.6 % (0.0-2.0) Sodium Level 140 mEQ/L (135-145) Potassium Level 3.6 mEQ/L (3.4-4.9) Chloride Level 110 mEQ/L (98-107) H Carbon Dioxide Level 22 mEQ/L (20-30) Anion Gap 8 (5-15) Blood Urea Nitrogen 15 mg/dL (7-23) Creatinine 1.0 mg/dL (0.7-1.2) Estimat Glomerular Filtration Rate mL/min (>60) Glucose Level 98 mg/dL (74-106) Calcium Level 8.4 mg/dL (8.6-10.2) L Magnesium Level 1.7 mg/dL (1.7-2.5) Assessment Post-op Diagnosis Acute appendicitis Additional Comments edema of penis and scrotum Plan Additional Comments awaiting blood culture result JAN POLLOCK Mar 30, 2017 14:00
[2017-03-30 16:00] VITALS: BP 150/77
[2017-03-30] MEDS ORDERED: KCl 10% 20 mEq/15ml liquid ORAL ONE (18:00)
[2017-03-30] MEDS: Vancomycin 1.25 GM in D5W 275 ML IVPB SCH (18:20)
[2017-03-30 20:00] VITALS: BP 131/77
[2017-03-31] VITALS: BP 164/82
[2017-03-31] MEDS: DuoNeb 0.5-3(2.5)mg/3ml neb HHN SCH ×5 (03:00→20:51)
--- NOTE | 2017-03-31 03:30 | Progress Note ---
DATE: 03/30/2017 INTERNAL MEDICINE AND CARDIOLOGY PROGRESS SUBJECTIVE: The patient is concerned about swelling of his scrotum, abdomen, and lower extremities. A venous duplex scan of the lower extremities was negative for DVT. The patient's Pratt catheter was removed. He is yet to void. The patient has no nausea or vomiting. He is tolerating a diet. PHYSICAL EXAMINATION: Blood pressure 131/77, pulse 93, and respiratory rate 19. No fevers. NECK: Supple. LUNGS: Clear. CARDIAC: Regular rhythm and rate. Normal S1, S2 with no murmur. ABDOMEN: Slightly distended. Surgical site clean and dry. EXTERNAL GENITALIA: There is edema of the penis. Scrotum is ecchymotic, but the foreskin is retractable. EXTREMITIES: With trace dependent edema bilaterally. LABORATORY DATA: White count 7.4, hemoglobin 10.4, potassium 3.6, magnesium 1.7, BUN 15, and creatinine 1.0. IMPRESSION: 1. Acute appendicitis status post appendectomy. 2. Bacteremia with gram-negative rods. 3. Edema due to third spacing. 4. Urinary retention due to benign prostatic hypertrophy. 5. Hypertensive heart disease. PLAN: 1. Monitor free adequate urine output. If unable to void, we will need to replace catheter. 2. Diuresis with caution monitoring for electrolytes. 3. Replace potassium and magnesium. 4. Continue DVT prophylaxis. 5. Mobilize. 6. Await final culture results and adjust antibiotics accordingly. 7. For now, intravenous antibiotics on board. Tawanda Ortega M.D. DR: MARIA ESTHER JOB#: [id number] CC:
[2017-03-31 04:00] VITALS: BP 160/82
[2017-03-31] MEDS: Piperacillin/Tazobactam 3.375 GM in D5W 110 ML IVPB SCH ×3 (05:14→21:19)
[2017-03-31] MEDS: Heparin 5000 units/ml inj SUBQ SCH ×3 (05:17→21:26)
[2017-03-31 07:44] VITALS: BP 192/108
[2017-03-31] MEDS: Irbesartan 150mg tablet ORAL SCH (09:05)
[2017-03-31] MEDS: Tamsulosin 0.4mg cap ORAL SCH ×2 (09:05→18:39)
[2017-03-31 11:30] VITALS: BP 199/111
--- NOTE | 2017-03-31 13:20 | General Surgery Progress Note ---
General Surgery-Progress Note Subjective Symptoms: pain absent, BM Objective Last 24 Hour Vital Signs Date Time Temp Pulse Resp B/P Pulse Ox O2 Delivery O2 Flow Rate FiO2 03/31/17 11:30 97.7 86 20 199/111 96 Room Air 03/31/17 11:29 82 16 100 Nasal Cannula 2.0 28 03/31/17 11:26 199/111 03/31/17 11:18 21 03/31/17 11:18 75 18 96 Room Air 03/31/17 09:05 192/108 03/31/17 08:00 67 03/31/17 07:44 96.8 76 20 192/108 95 Room Air 03/31/17 07:42 78 16 100 Nasal Cannula 2.0 03/31/17 07:33 Room Air 03/31/17 07:33 95 Room Air 21 03/31/17 07:33 21 03/31/17 07:33 81 18 95 Room Air 03/31/17 05:33 98.1 03/31/17 04:00 97 03/31/17 04:00 97.7 76 20 160/82 93 Room Air 03/31/17 03:11 Nasal Cannula 03/31/17 03:10 89 20 94 Room Air 03/31/17 00:00 108 03/31/17 00:00 98.1 98 20 164/82 96 Nasal Cannula 2.0 03/30/17 22:45 71 12 99 Nasal Cannula 03/30/17 22:37 85 20 95 Room Air 03/30/17 22:37 28 03/30/17 20:16 28 03/30/17 20:15 94 Room Air 03/30/17 20:15 88 20 94 Room Air 03/30/17 20:15 Room Air 03/30/17 20:00 87 03/30/17 20:00 97.9 93 19 131/77 93 Room Air 03/30/17 16:00 98.1 98 20 150/77 95 Room Air 03/30/17 16:00 89 03/30/17 15:47 76 22 99 Nasal Cannula 03/30/17 15:40 79 20 96 Nasal Cannula 2.0 03/30/17 15:40 28 03/30/17 14:24 155/90 I&O Intake and Output 03/30/17 03/31/17 19:00 07:00 Intake Total 55.0 ml Output Total 1000 ml Balance -945.0 ml IV Total 55.0 ml Output Urine Total 1000 ml # Voids 2 2 # Bowel Movements 2 1 Wound: clean, intact Drains: none Abdomen: soft, distended, present bowel sounds, other - bladder ditended obove umbilicus, edema of penis and scrotum has reduced conciderably Assessment Post-op Diagnosis Acute appendicitis Additional Comments Urinary retention Plan Additional Comments Urology consult was called JAN POLLOCK Mar 31, 2017 13:20
--- NOTE | 2017-03-31 13:43 | Infectious Diseases Prog Note ---
Assessment/Plan Assessment/Plan ASSESSMENT AND PLAN: 1. appendicitis with sepsis and leukocytosis - s/p appendectomy - anaerobic bacteremia - id pending, d/w microbiology - continue zosyn for now, discontinue vancomycin - check surveillance blood cultures and labs - d/w surgery, microbiology and patient 2. The patient has history of hypertension. Continue blood pressure treatment per primary 3. Pain management. 4. urinary retention and Krishnamurthy 5. Chronic obstructive pulmonary disease. 6. Past smoker. 7. Spinal stenosis. 8. Hyperlipidemia. 9. History of hyperglycemia and mild protein malnutrition. 10. History of multiple surgeries. 11. Allergy to latex. 12. Social, he is former smoker. 13. MAR was noted. 14. Case was discussed with RN. 15. Family history is noncontributory. 16. Case was discussed with Dr. Ortega 17. Case was discussed with Surgery. 18. Case was discussed with patient and questions were answered. Subjective Constitutional: Denies: fever HEENT: Denies: congestion Respiratory: Denies: shortness of breath Cardiovascular: Denies: chest pain Gastrointestinal/Abdominal: Reports: other - + urinary retention, requiring krishnamurthy, Denies: diarrhea, nausea, vomiting Genitourinary: Denies: dysuria, frequency, hematuria Neurologic: Denies: headache Psychiatric: Denies: depression Skin: Denies: rash Hematologic: Denies: bleeding Musculoskeletal: Denies: pain Allergies: Coded Allergies: LATEX (Verified Allergy, Unknown, Rash, 10/16/16) Objective Vital Signs Last 24 Hour Vital Signs Date Time Temp Pulse Resp B/P Pulse Ox O2 Delivery O2 Flow Rate FiO2 03/31/17 11:30 97.7 86 20 199/111 96 Room Air 03/31/17 11:29 82 16 100 Nasal Cannula 2.0 03/31/17 11:26 199/111 03/31/17 11:18 21 03/31/17 11:18 75 18 96 Room Air 03/31/17 09:05 192/108 03/31/17 08:00 67 03/31/17 07:44 96.8 76 20 192/108 95 Room Air 03/31/17 07:42 78 16 100 Nasal Cannula 2.0 28 03/31/17 07:33 Room Air 03/31/17 07:33 95 Room Air 21 03/31/17 07:33 21 03/31/17 07:33 81 18 95 Room Air 03/31/17 05:33 98.1 03/31/17 04:00 97 03/31/17 04:00 97.7 76 20 160/82 93 Room Air 03/31/17 03:11 Nasal Cannula 03/31/17 03:10 89 20 94 Room Air 03/31/17 00:00 108 03/31/17 00:00 98.1 98 20 164/82 96 Nasal Cannula 2.0 03/30/17 22:45 71 12 99 Nasal Cannula 28 03/30/17 22:37 85 20 95 Room Air 03/30/17 22:37 28 03/30/17 20:16 28 03/30/17 20:15 94 Room Air 03/30/17 20:15 88 20 94 Room Air 03/30/17 20:15 Room Air 03/30/17 20:00 87 03/30/17 20:00 97.9 93 19 131/77 93 Room Air 03/30/17 16:00 98.1 98 20 150/77 95 Room Air 03/30/17 16:00 89 03/30/17 15:47 76 22 99 Nasal Cannula 28 03/30/17 15:40 79 20 96 Nasal Cannula 2.0 28 03/30/17 15:40 28 03/30/17 14:24 155/90 Height (Feet): 5 Height (Inches): 5.00 Weight (Pounds): 138 General Appearance: no acute distress HEENT: normocephalic, atraumatic, anicteric, mucous membranes moist, PERRL, EOMI, pharynx normal, supple, no JVD Respiratory/Chest: lungs clear, normal breath sounds, no respiratory distress, no accessory muscle use Cardiovascular: normal rate, regular rhythm, no gallop/murmur, no JVD Abdomen: soft, non tender, no organomegaly, non distended Genitourinary: other - + krishnamurthy - urine clear Extremities: no cyanosis Skin: no rash Neurologic/Psychiatric: bleacher pulp II-XII grossly normal, alert, oriented x 3, responsive Lymphatic: no neck adenopathy Musculoskeletal: no effusion Objective CT scan - abdomen and pelvis Impression: Evidence of acute primary versus secondary appendicitis with thickening of the wall, luminal dilatation and periappendiceal inflammation. There is evidence of inflammation involving surrounding structures such as the tip of the cecum and the origin of the terminal ileum which may be secondary to the appendicitis. However , it is possible that appendicitis a secondary phenomenon due to colitis and/or terminal ileitis, such as Crohn's. This is difficult to distinguish on imaging alone. Please correlate clinically. No evidence of abscess. chest x-ray - interstitial disease Microbiology Date/Time Source Procedure Growth Status 03/30/17 01:20 Urine,Clean Catch Urine Culture - Preliminary NO GROWTH AFTER 24 HOURS Resulted Labs Test 03/29/17 04:25 03/30/17 01:20 03/30/17 07:15 White Blood Count 10.6 K/UL (4.8-10.8) 7.4 K/UL (4.8-10.8) Red Blood Count 3.28 M/UL (4.70-6.10) 3.27 M/UL (4.70-6.10) Hemoglobin 10.9 G/DL (14.2-18.0) 10.4 G/DL (14.2-18.0) Hematocrit 32.4 % (42.0-52.0) 32.4 % (42.0-52.0) Mean Corpuscular Volume 99 FL (80-99) 99 FL (80-99) Mean Corpuscular Hemoglobin 33.4 PG (27.0-31.0) 31.7 PG (27.0-31.0) Mean Corpuscular Hemoglobin Concent 33.8 G/DL (32.0-36.0) 32.1 G/DL (32.0-36.0) Red Cell Distribution Width 13.8 % (11.6-14.8) 13.7 % (11.6-14.8) Platelet Count 206 K/UL (150-450) 210 K/UL (150-450) Mean Platelet Volume 8.8 FL (6.5-10.1) 7.9 FL (6.5-10.1) Neutrophils (%) (Auto) % (45.0-75.0) 72.4 % (45.0-75.0) Lymphocytes (%) (Auto) % (20.0-45.0) 14.6 % (20.0-45.0) Monocytes (%) (Auto) % (1.0-10.0) 10.7 % (1.0-10.0) Eosinophils (%) (Auto) % (0.0-3.0) 1.8 % (0.0-3.0) Basophils (%) (Auto) % (0.0-2.0) 0.6 % (0.0-2.0) Urine Color Pale yellow Urine Appearance Clear Urine pH 5 (4.5-8.0) Urine Specific [place] 1.010 (1.005-1.035) Urine Protein 2+ (NEGATIVE) Urine Glucose (UA) Negative (NEGATIVE) Urine Ketones Negative (NEGATIVE) Urine Occult Blood 5+ (NEGATIVE) Urine Nitrite Negative (NEGATIVE) Urine Bilirubin Negative (NEGATIVE) Urine Urobilinogen Normal MG/DL (0.0-1.0) Urine Leukocyte Esterase 2+ (NEGATIVE) Urine RBC Tntc /HPF (0 - 0) Urine WBC 20-30 /HPF (0 - 0) Urine Squamous Epithelial Cells None /LPF (NONE/OCC) Urine Bacteria Few /HPF (NONE) Sodium Level 140 mEQ/L (135-145) Potassium Level 3.6 mEQ/L (3.4-4.9) Chloride Level 110 mEQ/L (98-107) Carbon Dioxide Level 22 mEQ/L (20-30) Anion Gap 8 (5-15) Blood Urea Nitrogen 15 mg/dL (7-23) Creatinine 1.0 mg/dL (0.7-1.2) Estimat Glomerular Filtration Rate mL/min (>60) Glucose Level 98 mg/dL (74-106) Calcium Level 8.4 mg/dL (8.6-10.2) Magnesium Level 1.7 mg/dL (1.7-2.5) Current Medications Medications (Trade) Dose Ordered Sig/Irish Route PRN Reason Start Time Stop Time Status Last Admin Dose Admin Acetaminophen (Tylenol) 650 mg Q4H PRN ORAL Mild Pain/Temp > 100.5 03/29/17 12:00 04/28/17 11:59 Albuterol/ Ipratropium (DuoNeb 0.5-3(2.5)mg/3ml) 3 ml Q4HRT HHN 03/29/17 15:00 04/03/17 14:59 03/31/17 11:18 Heparin Sodium (Porcine) (Heparin 5000 units/ml) 5,000 units EVERY 8 HOURS SUBQ 03/29/17 14:00 04/28/17 13:59 03/31/17 05:17 Hydralazine HCl (Apresoline) 10 mg Q4H PRN IV SBP above 150mmHg 03/29/17 14:00 04/28/17 13:59 03/31/17 11:26 Hydrochlorothiazide (Hydrodiuril) 25 mg DAILY ORAL 03/31/17 09:00 04/30/17 08:59 03/31/17 09:05 Hydromorphone HCl (Dilaudid) 1 mg Q4H PRN IVP Severe Breakthru Pain (>7) 03/29/17 14:00 04/05/17 13:59 Irbesartan (Avapro) 150 mg DAILY ORAL 03/30/17 09:00 04/29/17 08:59 03/31/17 09:05 Metoclopramide HCl (Reglan) 10 mg Q6H PRN IVP Nausea & Vomiting 03/29/17 17:00 04/28/17 16:59 Ondansetron HCl (Zofran) 4 mg Q6H PRN IVP Nausea & Vomiting 03/29/17 16:00 04/28/17 15:59 Oxycodone/ Acetaminophen (Percocet 10/325) 1 tab Q4H PRN ORAL Moderate Pain (Pain Scale 4-6) 03/29/17 14:00 04/05/17 13:59 03/31/17 04:34 Oxycodone/ Acetaminophen (Percocet 10/325) 2 tab Q4H PRN ORAL Severe Pain (Pain Scale 7-10) 03/29/17 14:00 04/05/17 13:59 Pantoprazole (Protonix) 40 mg DAILY ORAL 03/30/17 09:00 04/29/17 08:59 03/31/17 09:05 Piperacillin Sod/ Tazobactam Sod/ Dextrose (Zosyn/D5W) 110 ml @ 27.5 mls/hr EVERY 8 HOURS IVPB 03/29/17 14:00 04/05/17 13:59 03/31/17 05:14 Tamsulosin HCl (Flomax) 0.4 mg BID ORAL 03/29/17 18:00 04/28/17 17:59 03/31/17 09:05 HANNAH LONG 10, 2017 13:43
--- NOTE | 2017-03-31 14:27 | Diagnostic Imaging Report ---
APPROVED REPORT CPT Code: 92090 Present Symptoms Comments: R/O DVT BILATERAL: Imaging reveals a patent deep venous system bilaterally. There is no evidence of thrombus within the femoral, popliteal or tibial segments. The greater saphenous veins are also within normal limits. Doppler indicates normal spontaneous flow within these segments.
[2017-03-31 15:30] VITALS: BP 156/82
[2017-03-31] MEDS ORDERED: NS 275ml ONE (16:23)
[2017-03-31] MEDS ORDERED: Tubing IV Secondary IV ONE (16:23)
[2017-03-31] MEDS: Lactobacillus-GG tablet ORAL SCH (18:40)
[2017-03-31 20:00] VITALS: BP 161/91
[2017-04-01] VITALS (7 sets, daily range): BP systolic 119–175; BP diastolic 69–90
[2017-04-01] MEDS: DuoNeb 0.5-3(2.5)mg/3ml neb HHN SCH ×7 (00:35→22:48)
[2017-04-01] MEDS: Piperacillin/Tazobactam 3.375 GM in D5W 110 ML IVPB SCH ×3 (05:45→21:56)
--- NOTE | 2017-04-01 05:45 | Consultation ---
DATE OF CONSULTATION: 03/31/2017 CONSULTING PHYSICIAN: Robert Carter M.D. REFERRING PHYSICIAN: Cecy Hardwick M.D. REASON FOR CONSULTATION: For evaluation of urinary retention. HISTORY OF PRESENT ILLNESS: This is a 72-year-old male, who has a history of abdominal pain. He was noted to have appendicitis. He is now 5 days status post laparoscopic appendectomy. Postoperatively, he had difficulty with urination and urinary retention requiring replacement of Pratt catheter. Urology evaluation has been requested. A Pratt catheter was again placed about 900 mL of residual urine. Of note, the patient does have a history of BPH. He has a history of bladder calculi. Apparently, he has had some procedure for his stones as well as prostate about 4 months ago by an outside urologist. He voids very well. He has some urinary frequency. PAST MEDICAL HISTORY: Significant for above. Also, history of COPD, hypertension, spinal stenosis and hyperlipidemia. PAST SURGICAL HISTORY: He has had a rhinoplasty and radial nerve surgery. He has had cystoscopy and litholapaxy as noted above. CURRENT MEDICATIONS: In the hospital, the patient is on , Avapro, Protonix, Flomax b.i.d., Reglan, Zofran, Apresoline, Dilaudid and Percocet. ALLERGIES: Latex. SOCIAL HISTORY: Currently nonsmoker. FAMILY HISTORY: Noncontributory. REVIEW OF SYSTEMS: As above. PHYSICAL EXAMINATION: GENERAL: The patient is an elderly male, no acute distress. VITAL SIGNS: His temperature is 98.2 degrees, blood pressure 156/82, pulse 91, and respirations 20. HEENT: Normocephalic. NECK: Supple. ABDOMEN: Soft. BACK: No CVA tenderness. GENITOURINARY: Reveals some penile and scrotal edema and ecchymosis. Pratt is in place. Urine is grossly yellow. RECTAL: Reveals a firm prostate of 40 to 60 grams. EXTREMITIES: No clubbing or cyanosis. LABORATORY DATA: BUN is 16, creatinine 1.0, and potassium 3.6. White count is 7.4, hemoglobin 10.4, and platelets are 210,000. His urinalysis on admission had shown 0 to 2 RBCs, and a repeat UA from yesterday showed too numerous to count RBCs, 20 to 30 WBCs and he has 2+ protein. DIAGNOSTIC IMAGING STUDIES: The patient had a CT scan of the abdomen and pelvis, there was mention of bilateral renal cyst. There was also some prostatic hypertrophy. IMPRESSION: 1. Urinary retention. 2. Benign prostatic hypertrophy. 3. Possible neurogenic bladder. 4. Hematuria. 5. Pyuria. 6. Scrotal edema. 7. Scrotal ecchymosis. 8. Renal cyst. 9. Urinary frequency. 10. Bladder calculus history. 11. Proteinuria. PLAN AND DISCUSSION: Again, the patient does have urinary retention presumably secondary to combination of BPH related bladder outlet obstruction, possible atonic neurogenic bladder because of recent surgery, medications and lack of mobility. The patient has failed a number of voiding trial and Pratt catheter is back indwelling. Currently, he is on Flomax 0.4 mg twice a day. I will also add finasteride 5 mg daily. He can try to repeat voiding trial in a day or two. We can have a voiding trial as an outpatient. The patient apparently also knows how to self-catheterize himself and can do that at home. He may need to have a cystoscopy to re-evaluate the lower urinary tract and evaluate for obstruction. He has had hematuria and pyuria presumably secondary to the indwelling Pratt. I will follow the patient. Any other recommendations will be forthcoming. Thank you, Dr. Hardwick, for asking me to participate in the consultation of this patient. oRbert Carter M.D. DR: ROQUE JOB#: [id number] CC: Cecy Hardwick M.D.; Fax#: [phone] Rivera M.D. ; Fax#: [phone] Ortega M.D.
[2017-04-01] MEDS: Heparin 5000 units/ml inj SUBQ SCH ×3 (05:54→22:03)
[2017-04-01 06:30] LABS: BASOPHILS % (AUTO) 0.5 % (0.0-2.0); EOSINOPHILS % (AUTO) 3.1 % (0.0-3.0); LYMPHOCYTES % (AUTO) 11.7 % (20.0-45.0); MEAN CORPUSCULAR HEMOGLOBIN 32.2 PG (27.0-31.0); MEAN CORPUSCULAR HGB CONC 32.6 G/DL (32.0-36.0); MEAN CORPUSCULAR VOLUME 99 FL (80-99); MEAN PLATELET VOLUME 7.1 FL (6.5-10.1); MONOCYTES % (AUTO) 10.4 % (1.0-10.0); NEUTROPHILS % (AUTO) 74.3 % (45.0-75.0); PLATELET COUNT 255 K/UL (150-450); RED BLOOD COUNT 3.31 M/UL (4.70-6.10); WHITE BLOOD COUNT 9.8 K/UL (4.8-10.8)
[2017-04-01 07:22] LABS: ANION GAP 17 (5-15); CALCIUM 9.1 mg/dL (8.6-10.2); CARBON DIOXIDE 23 mEQ/L (20-30); CHLORIDE 104 mEQ/L (98-107); HEMOLYSIS 2; POTASSIUM 3.2 mEQ/L (3.4-4.9); SODIUM 144 mEQ/L (135-145)
--- NOTE | 2017-04-01 07:29 | Urology Progress Note ---
Assessment/Plan Assessment/Plan 1. Urinary retention. 2. Benign prostatic hypertrophy. 3. Possible neurogenic bladder. 4. Hematuria. 5. Pyuria. 6. Scrotal edema. 7. Scrotal ecchymosis. 8. Renal cyst. 9. Urinary frequency. 10. Bladder calculus history. 11. Proteinuria. krishnamurthy indwelling cont with flomax BID, proscar added scrotal elevation PRN repeat voiding trial poss tomorrow pt can also self cath at home if needed Subjective Allergies: Coded Allergies: LATEX (Verified Allergy, Unknown, Rash, 10/16/16) Subjective all noted, no new changes Objective Last 24 Hour Vital Signs Date Time Temp Pulse Resp B/P Pulse Ox O2 Delivery O2 Flow Rate FiO2 04/01/17 04:00 81 04/01/17 04:00 97.3 85 20 119/69 95 Room Air 97.0 04/01/17 03:45 89 20 96 Nasal Cannula 2.0 28 04/01/17 03:30 82 20 94 Nasal Cannula 2.0 28 04/01/17 00:00 89 04/01/17 00:00 97.0 84 18 175/86 86 Nasal Cannula 2.0 28 03/31/17 23:45 90 20 97 Nasal Cannula 2.0 28 03/31/17 23:30 80 20 95 Nasal Cannula 2.0 28 03/31/17 23:08 175/86 03/31/17 20:00 97.0 92 20 161/91 95 Room Air 2.0 28 03/31/17 20:00 90 03/31/17 19:45 88 20 98 Nasal Cannula 2.0 28 03/31/17 19:30 94 Nasal Cannula 2.0 28 03/31/17 19:30 86 20 Nasal Cannula 2.0 28 03/31/17 19:30 86 20 94 Nasal Cannula 2.0 28 03/31/17 19:30 Room Air 21 03/31/17 16:00 79 03/31/17 15:30 98.2 91 20 156/82 94 Room Air 03/31/17 15:07 Nasal Cannula 03/31/17 15:07 Nasal Cannula 03/31/17 12:00 109 03/31/17 11:30 97.7 86 20 199/111 96 Room Air 03/31/17 11:29 82 16 100 Nasal Cannula 2.0 28 7/10/17 11:26 199/111 03/31/17 11:18 21 03/31/17 11:18 75 18 96 Room Air 03/31/17 09:05 192/108 03/31/17 08:00 67 03/31/17 07:44 96.8 76 20 192/108 95 Room Air 03/31/17 07:42 78 16 100 Nasal Cannula 2.0 28 03/31/17 07:33 Room Air 03/31/17 07:33 95 Room Air 21 03/31/17 07:33 21 03/31/17 07:33 81 18 95 Room Air Intake and Output 03/31/17 04/01/17 19:00 07:00 Intake Total 672.5 ml Output Total 1900 ml 900 ml Balance -1227.5 ml -900 ml Intake Oral 480 ml IV Total 192.5 ml Output Urine Total 1900 ml 900 ml # Bowel Movements 1 Microbiology Date/Time Source Procedure Growth Status 03/26/17 12:30 Blood Blood Culture - Preliminary Resulted 03/30/17 01:20 Urine,Clean Catch Urine Culture - Preliminary NO GROWTH AFTER 24 HOURS Resulted Current Medications Medications (Trade) Dose Ordered Sig/Irish Route PRN Reason Start Time Stop Time Status Last Admin Dose Admin Acetaminophen (Tylenol) 650 mg Q4H PRN ORAL Mild Pain/Temp > 100.5 03/29/17 12:00 04/28/17 11:59 Albuterol/ Ipratropium (DuoNeb 0.5-3(2.5)mg/3ml) 3 ml Q4HRT HHN 03/29/17 15:00 04/03/17 14:59 04/01/17 04:29 Cetylpyridinium Chloride (Cepacol) 1 lozenge EVERY 2 HOURS PRN MARTINEZ Sore Throat 03/31/17 15:45 04/30/17 15:44 03/31/17 15:48 Finasteride (Proscar) 5 mg DAILY ORAL 03/31/17 19:30 04/30/17 19:29 03/31/17 21:18 Heparin Sodium (Porcine) (Heparin 5000 units/ml) 5,000 units EVERY 8 HOURS SUBQ 03/29/17 14:00 04/28/17 13:59 04/01/17 05:54 Hydralazine HCl (Apresoline) 10 mg Q4H PRN IV SBP above 150mmHg 03/29/17 14:00 04/28/17 13:59 03/31/17 23:08 Hydrochlorothiazide (Hydrodiuril) 25 mg DAILY ORAL 03/31/17 09:00 04/30/17 08:59 03/31/17 09:05 Hydromorphone HCl (Dilaudid) 1 mg Q4H PRN IVP Severe Breakthru Pain (>7) 03/29/17 14:00 04/05/17 13:59 Irbesartan (Avapro) 150 mg DAILY ORAL 03/30/17 09:00 04/29/17 08:59 03/31/17 09:05 Lactobacillus Acidophilus (Culturelle) 1 tab THREE TIMES A DAY ORAL 03/31/17 18:00 04/30/17 17:59 03/31/17 18:40 Metoclopramide HCl (Reglan) 10 mg Q6H PRN IVP Nausea & Vomiting 03/29/17 17:00 04/28/17 16:59 Ondansetron HCl (Zofran) 4 mg Q6H PRN IVP Nausea & Vomiting 03/29/17 16:00 04/28/17 15:59 Oxycodone/ Acetaminophen (Percocet 10/325) 1 tab Q4H PRN ORAL Moderate Pain (Pain Scale 4-6) 03/29/17 14:00 04/05/17 13:59 03/31/17 23:07 Oxycodone/ Acetaminophen (Percocet 10/325) 2 tab Q4H PRN ORAL Severe Pain (Pain Scale 7-10) 03/29/17 14:00 04/05/17 13:59 Pantoprazole (Protonix) 40 mg DAILY ORAL 03/30/17 09:00 04/29/17 08:59 03/31/17 09:05 Piperacillin Sod/ Tazobactam Sod/ Dextrose (Zosyn/D5W) 110 ml @ 27.5 mls/hr EVERY 8 HOURS IVPB 03/29/17 14:00 04/05/17 13:59 04/01/17 05:45 Tamsulosin HCl (Flomax) 0.4 mg BID ORAL 03/29/17 18:00 04/28/17 17:59 03/31/17 18:39 Laboratory Tests 04/01/17 04:40: White Blood Count 9.8, Red Blood Count 3.31L, Hemoglobin 10.7L, Hematocrit 32.7L , Mean Corpuscular Volume 99, Mean Corpuscular Hemoglobin 32.2H, Mean Corpuscular Hemoglobin Concent 32.6, Red Cell Distribution Width 14.0, Platelet Count 255, Mean Platelet Volume 7.1, Neutrophils (%) (Auto) 74.3, Lymphocytes (% ) (Auto) 11.7L, Monocytes (%) (Auto) 10.4H, Eosinophils (%) (Auto) 3.1H, Basophils (%) (Auto) 0.5, Sodium Level 144, Potassium Level 3.2L, Chloride Level 104, Carbon Dioxide Level 23, Anion Gap 17H, Blood Urea Nitrogen 15, Creatinine 1.0, Estimat Glomerular Filtration Rate , Glucose Level 69L, Calcium Level 9.1 Height (Feet): 5 Height (Inches): 5.00 Weight (Pounds): 138 Objective exam stable RICARDOOLIVIA Apr 01, 2017 07:29
[2017-04-01] MEDS: Lactobacillus-GG tablet ORAL SCH ×3 (09:15→18:41)
[2017-04-01] MEDS: Irbesartan 150mg tablet ORAL SCH (09:15)
[2017-04-01] MEDS: Tamsulosin 0.4mg cap ORAL SCH ×2 (09:16→18:41)
--- NOTE | 2017-04-01 12:41 | General Surgery Progress Note ---
General Surgery-Progress Note Subjective Symptoms: improved, pain absent, BM Objective Last 24 Hour Vital Signs Date Time Temp Pulse Resp B/P Pulse Ox O2 Delivery O2 Flow Rate FiO2 04/01/17 11:30 Nasal Cannula 04/01/17 11:30 95 Nasal Cannula 2.0 28 04/01/17 09:15 154/76 04/01/17 08:00 96.9 94 17 154/76 92 Room Air 04/01/17 07:31 Nasal Cannula 04/01/17 07:31 95 Nasal Cannula 2.0 28 04/01/17 07:31 95 Nasal Cannula 2.0 28 04/01/17 07:31 Nasal Cannula 2.0 28 04/01/17 04:00 81 04/01/17 04:00 97.3 85 20 119/69 95 Room Air 97.0 04/01/17 03:45 89 20 96 Nasal Cannula 2.0 28 04/01/17 03:30 82 20 94 Nasal Cannula 2.0 28 04/01/17 00:00 89 04/01/17 00:00 97.0 84 18 175/86 86 Nasal Cannula 2.0 28 03/31/17 23:45 90 20 97 Nasal Cannula 2.0 28 03/31/17 23:30 80 20 95 Nasal Cannula 2.0 28 03/31/17 23:08 175/86 03/31/17 20:00 97.0 92 20 161/91 95 Room Air 2.0 03/31/17 20:00 90 03/31/17 19:45 88 20 98 Nasal Cannula 2.0 03/31/17 19:30 94 Nasal Cannula 2.0 28 03/31/17 19:30 86 20 Nasal Cannula 2.0 28 03/31/17 19:30 86 20 94 Nasal Cannula 2.0 28 03/31/17 19:30 Room Air 21 03/31/17 16:00 79 03/31/17 15:30 98.2 91 20 156/82 94 Room Air 03/31/17 15:07 Nasal Cannula 03/31/17 15:07 Nasal Cannula I&O Intake and Output 03/31/17 04/01/17 18:59 06:59 Intake Total 672.5 ml Output Total 1900 ml 900 ml Balance -1227.5 ml -900 ml Intake Oral 480 ml IV Total 192.5 ml Output Urine Total 1900 ml 900 ml # Bowel Movements 1 Wound: clean, intact Respiratory: clear Abdomen: soft, flat, non-tender, present bowel sounds Extremities: no tenderness Laboratory Tests Test 04/01/17 04:40 White Blood Count 9.8 K/UL (4.8-10.8) Red Blood Count 3.31 M/UL (4.70-6.10) L Hemoglobin 10.7 G/DL (14.2-18.0) L Hematocrit 32.7 % (42.0-52.0) L Mean Corpuscular Volume 99 FL (80-99) Mean Corpuscular Hemoglobin 32.2 PG (27.0-31.0) H Mean Corpuscular Hemoglobin Concent 32.6 G/DL (32.0-36.0) Red Cell Distribution Width 14.0 % (11.6-14.8) Platelet Count 255 K/UL (150-450) Mean Platelet Volume 7.1 FL (6.5-10.1) Neutrophils (%) (Auto) 74.3 % (45.0-75.0) Lymphocytes (%) (Auto) 11.7 % (20.0-45.0) L Monocytes (%) (Auto) 10.4 % (1.0-10.0) H Eosinophils (%) (Auto) 3.1 % (0.0-3.0) H Basophils (%) (Auto) 0.5 % (0.0-2.0) Sodium Level 144 mEQ/L (135-145) Potassium Level 3.2 mEQ/L (3.4-4.9) L Chloride Level 104 mEQ/L (98-107) Carbon Dioxide Level 23 mEQ/L (20-30) Anion Gap 17 (5-15) H Blood Urea Nitrogen 15 mg/dL (7-23) Creatinine 1.0 mg/dL (0.7-1.2) Estimat Glomerular Filtration Rate mL/min (>60) Glucose Level 69 mg/dL (74-106) L Calcium Level 9.1 mg/dL (8.6-10.2) Assessment Post-op Diagnosis Acute appendicitis Plan Additional Comments per PCP JAN POLLOCK Apr 01, 2017 12:41
--- NOTE | 2017-04-01 20:54 | Infectious Diseases Prog Note ---
Assessment/Plan Assessment/Plan ASSESSMENT AND PLAN: 1. appendicitis with sepsis and leukocytosis - s/p appendectomy - bacteroides bacteremia - continue zosyn - excellent anaerobic coverage - check surveillance blood cultures and labs - can discharge on augmentin alone for one week or flagyl plus levofloxacin for one week - d/w Dr. Ortega 2. The patient has history of hypertension. Continue blood pressure treatment per primary 3. Pain management. 4. urinary retention and Krishnamurthy 5. Chronic obstructive pulmonary disease. 6. Past smoker. 7. Spinal stenosis. 8. Hyperlipidemia. 9. History of hyperglycemia and mild protein malnutrition. 10. History of multiple surgeries. 11. Allergy to latex. 12. Social, he is former smoker. 13. MAR was noted. 14. Case was discussed with RN. 15. Family history is noncontributory. 16. Case was discussed with Dr. Ortega 17. Case was discussed with Surgery. 18. Case was discussed with patient and questions were answered. Subjective Constitutional: Denies: fever HEENT: Denies: congestion Respiratory: Denies: shortness of breath Cardiovascular: Denies: chest pain Gastrointestinal/Abdominal: Denies: nausea Genitourinary: Reports: other - + krishnamurthy Neurologic: Denies: headache Psychiatric: Denies: depression Skin: Denies: rash Hematologic: Denies: bleeding Musculoskeletal: Denies: pain Allergies: Coded Allergies: LATEX (Verified Allergy, Unknown, Rash, 10/16/16) Objective Vital Signs Last 24 Hour Vital Signs Date Time Temp Pulse Resp B/P Pulse Ox O2 Delivery O2 Flow Rate FiO2 04/01/17 20:05 80 19 95 Room Air 21 04/01/17 20:03 98.1 84 19 167/80 98 Nasal Cannula 04/01/17 19:50 Room Air 04/01/17 19:50 93 Room Air 04/01/17 19:50 79 17 93 Room Air 21 04/01/17 16:00 80 04/01/17 16:00 97.0 55 17 142/84 96 Room Air 04/01/17 15:11 96 Nasal Cannula 2.0 28 04/01/17 15:11 Nasal Cannula 04/01/17 12:00 86 04/01/17 12:00 97.0 99 18 157/90 98 Room Air 04/01/17 11:30 Nasal Cannula 04/01/17 11:30 95 Nasal Cannula 2.0 28 04/01/17 09:15 154/76 04/01/17 08:00 88 04/01/17 08:00 96.9 94 17 154/76 92 Room Air 04/01/17 07:31 Nasal Cannula 04/01/17 07:31 95 Nasal Cannula 2.0 04/01/17 07:31 95 Nasal Cannula 2.0 04/01/17 07:31 Nasal Cannula 2.0 04/01/17 04:00 81 04/01/17 04:00 97.3 85 20 119/69 95 Room Air 97.0 04/01/17 03:45 89 20 96 Nasal Cannula 2.0 04/01/17 03:30 82 20 94 Nasal Cannula 2.0 04/01/17 00:00 89 04/01/17 00:00 97.0 84 18 175/86 86 Nasal Cannula 2.0 03/31/17 23:45 90 20 97 Nasal Cannula 2.0 03/31/17 23:30 80 20 95 Nasal Cannula 2.0 03/31/17 23:08 175/86 Height (Feet): 5 Height (Inches): 5.00 Weight (Pounds): 138 General Appearance: no acute distress HEENT: normocephalic, atraumatic, anicteric, mucous membranes moist, PERRL, EOMI, pharynx normal, supple, no JVD Respiratory/Chest: lungs clear, normal breath sounds, no respiratory distress, no accessory muscle use Cardiovascular: normal rate, regular rhythm, no gallop/murmur, no JVD Abdomen: normal bowel sounds, soft, non tender, no organomegaly, non distended Genitourinary: other - + krishnamurthy - urine clear Extremities: no cyanosis Skin: no rash, no ulcers Neurologic/Psychiatric: alert, oriented x 3, responsive Lymphatic: no neck adenopathy Musculoskeletal: no effusion Objective CT scan - abdomen and pelvis Impression: Evidence of acute primary versus secondary appendicitis with thickening of the wall, luminal dilatation and periappendiceal inflammation. There is evidence of inflammation involving surrounding structures such as the tip of the cecum and the origin of the terminal ileum which may be secondary to the appendicitis. However , it is possible that appendicitis a secondary phenomenon due to colitis and/or terminal ileitis, such as Crohn's. This is difficult to distinguish on imaging alone. Please correlate clinically. No evidence of abscess. chest x-ray - interstitial disease Microbiology Date/Time Source Procedure Growth Status 03/26/17 12:30 Blood Blood Culture - Preliminary Resulted 03/30/17 01:20 Urine,Clean Catch Urine Culture - Final NO GROWTH AFTER 48 HOURS Complete Microbiology Date/Time Source Procedure Growth Status 03/30/17 01:20 Urine,Clean Catch Urine Culture - Final NO GROWTH AFTER 48 HOURS Complete bc - bacteroides species surveillance blood cultures pending Laboratory Tests Test 04/01/17 04:40 White Blood Count 9.8 K/UL (4.8-10.8) Red Blood Count 3.31 M/UL (4.70-6.10) L Hemoglobin 10.7 G/DL (14.2-18.0) L Hematocrit 32.7 % (42.0-52.0) L Mean Corpuscular Volume 99 FL (80-99) Mean Corpuscular Hemoglobin 32.2 PG (27.0-31.0) H Mean Corpuscular Hemoglobin Concent 32.6 G/DL (32.0-36.0) Red Cell Distribution Width 14.0 % (11.6-14.8) Platelet Count 255 K/UL (150-450) Mean Platelet Volume 7.1 FL (6.5-10.1) Neutrophils (%) (Auto) 74.3 % (45.0-75.0) Lymphocytes (%) (Auto) 11.7 % (20.0-45.0) L Monocytes (%) (Auto) 10.4 % (1.0-10.0) H Eosinophils (%) (Auto) 3.1 % (0.0-3.0) H Basophils (%) (Auto) 0.5 % (0.0-2.0) Sodium Level 144 mEQ/L (135-145) Potassium Level 3.2 mEQ/L (3.4-4.9) L Chloride Level 104 mEQ/L (98-107) Carbon Dioxide Level 23 mEQ/L (20-30) Anion Gap 17 (5-15) H Blood Urea Nitrogen 15 mg/dL (7-23) Creatinine 1.0 mg/dL (0.7-1.2) Estimat Glomerular Filtration Rate mL/min (>60) Glucose Level 69 mg/dL (74-106) L Calcium Level 9.1 mg/dL (8.6-10.2) Current Medications Medications (Trade) Dose Ordered Sig/Irish Route PRN Reason Start Time Stop Time Status Last Admin Dose Admin Acetaminophen (Tylenol) 650 mg Q4H PRN ORAL Mild Pain/Temp > 100.5 03/29/17 12:00 04/28/17 11:59 Albuterol/ Ipratropium (DuoNeb 0.5-3(2.5)mg/3ml) 3 ml Q4HRT HHN 03/29/17 15:00 04/03/17 14:59 04/01/17 19:48 Cetylpyridinium Chloride (Cepacol) 1 lozenge EVERY 2 HOURS PRN MARTINEZ Sore Throat 03/31/17 15:45 04/30/17 15:44 03/31/17 15:48 Finasteride (Proscar) 5 mg DAILY ORAL 03/31/17 19:30 04/30/17 19:29 04/01/17 09:15 Heparin Sodium (Porcine) (Heparin 5000 units/ml) 5,000 units EVERY 8 HOURS SUBQ 03/29/17 14:00 04/28/17 13:59 04/01/17 14:33 Hydralazine HCl (Apresoline) 10 mg Q4H PRN IV SBP above 150mmHg 03/29/17 14:00 04/28/17 13:59 03/31/17 23:08 Hydrochlorothiazide (Hydrodiuril) 25 mg DAILY ORAL 03/31/17 09:00 04/30/17 08:59 04/01/17 09:15 Hydromorphone HCl (Dilaudid) 1 mg Q4H PRN IVP Severe Breakthru Pain (>7) 03/29/17 14:00 04/05/17 13:59 Irbesartan (Avapro) 150 mg DAILY ORAL 03/30/17 09:00 04/29/17 08:59 04/01/17 09:15 Lactobacillus Acidophilus (Culturelle) 1 tab THREE TIMES A DAY ORAL 03/31/17 18:00 04/30/17 17:59 04/01/17 18:41 Metoclopramide HCl (Reglan) 10 mg Q6H PRN IVP Nausea & Vomiting 03/29/17 17:00 04/28/17 16:59 Ondansetron HCl (Zofran) 4 mg Q6H PRN IVP Nausea & Vomiting 03/29/17 16:00 04/28/17 15:59 Oxycodone/ Acetaminophen (Percocet 10/325) 1 tab Q4H PRN ORAL Moderate Pain (Pain Scale 4-6) 03/29/17 14:00 04/05/17 13:59 03/31/17 23:07 Oxycodone/ Acetaminophen (Percocet 10/325) 2 tab Q4H PRN ORAL Severe Pain (Pain Scale 7-10) 03/29/17 14:00 04/05/17 13:59 Pantoprazole (Protonix) 40 mg ACBREAKFAST ORAL 04/02/17 06:30 04/29/17 08:59 Piperacillin Sod/ Tazobactam Sod/ Dextrose (Zosyn/D5W) 110 ml @ 27.5 mls/hr EVERY 8 HOURS IVPB 03/29/17 14:00 04/05/17 13:59 04/01/17 14:28 Tamsulosin HCl (Flomax) 0.4 mg BID ORAL 03/29/17 18:00 04/28/17 17:59 04/01/17 18:41 HANNAH LONG Apr 01, 2017 20:54
[2017-04-02] MEDS: DuoNeb 0.5-3(2.5)mg/3ml neb HHN SCH ×4 (03:00→15:21)
[2017-04-02 03:52] VITALS: BP 140/72
[2017-04-02] MEDS: Heparin 5000 units/ml inj SUBQ SCH ×2 (06:07→13:00)
[2017-04-02] MEDS: Piperacillin/Tazobactam 3.375 GM in D5W 110 ML IVPB SCH ×2 (06:07→13:11)
--- NOTE | 2017-04-02 07:33 | Urology Progress Note ---
Assessment/Plan Assessment/Plan 1. Urinary retention. 2. Benign prostatic hypertrophy. 3. Possible neurogenic bladder. 4. Hematuria. 5. Pyuria. 6. Scrotal edema. 7. Scrotal ecchymosis. 8. Renal cyst. 9. Urinary frequency. 10. Bladder calculus history. 11. Proteinuria. krishnamurthy removed this morning cont with flomax BID, proscar added minimize narcotics scrotal elevation PRN repeat voiding trial today monitor PVR and IC or reinsert krishnamurthy PRN pt can also self cath at home if needed cysto as outpt d/w pt extensively Subjective Allergies: Coded Allergies: LATEX (Verified Allergy, Unknown, Rash, 10/16/16) Subjective all noted, krishnamurthy removed 30 minutes ago Objective Last 24 Hour Vital Signs Date Time Temp Pulse Resp B/P Pulse Ox O2 Delivery O2 Flow Rate FiO2 04/02/17 04:00 72 04/02/17 03:52 98.3 85 20 140/72 95 Room Air 04/02/17 03:32 Room Air 04/02/17 03:31 Room Air 04/02/17 00:00 85 04/01/17 23:56 157/80 04/01/17 23:54 98.6 82 21 157/80 94 Room Air 04/01/17 23:05 80 18 97 Room Air 21 04/01/17 22:49 83 18 92 Room Air 21 04/01/17 20:05 80 19 95 Room Air 21 04/01/17 20:03 98.1 84 19 167/80 98 Nasal Cannula 04/01/17 20:00 78 04/01/17 19:50 Room Air 04/01/17 19:50 93 Room Air 04/01/17 19:50 79 17 93 Room Air 21 04/01/17 16:00 80 04/01/17 16:00 97.0 55 17 142/84 96 Room Air 04/01/17 15:11 96 Nasal Cannula 2.0 28 04/01/17 15:11 Nasal Cannula 04/01/17 12:00 86 04/01/17 12:00 97.0 99 18 157/90 98 Room Air 04/01/17 11:30 Nasal Cannula 04/01/17 11:30 95 Nasal Cannula 2.0 28 04/01/17 09:15 154/76 04/01/17 08:00 88 04/01/17 08:00 96.9 94 17 154/76 92 Room Air 04/01/17 07:31 Nasal Cannula 04/01/17 07:31 95 Nasal Cannula 2.0 28 04/01/17 07:31 95 Nasal Cannula 2.0 28 04/01/17 07:31 Nasal Cannula 2.0 28 Intake and Output 04/01/17 04/02/17 19:00 07:00 Intake Total 832.5 ml Output Total 1500 ml 2000 ml Balance -667.5 ml -2000 ml Intake Oral 640 ml IV Total 192.5 ml Output Urine Total 1500 ml 2000 ml # Bowel Movements 1 Microbiology Date/Time Source Procedure Growth Status 03/31/17 13:15 Blood Blood Culture - Preliminary NO GROWTH AFTER 24 HOURS Resulted 03/30/17 01:20 Urine,Clean Catch Urine Culture - Final NO GROWTH AFTER 48 HOURS Complete Current Medications Medications (Trade) Dose Ordered Sig/Irish Route PRN Reason Start Time Stop Time Status Last Admin Dose Admin Acetaminophen (Tylenol) 650 mg Q4H PRN ORAL Mild Pain/Temp > 100.5 03/29/17 12:00 04/28/17 11:59 Albuterol/ Ipratropium (DuoNeb 0.5-3(2.5)mg/3ml) 3 ml Q4HRT HHN 03/29/17 15:00 04/03/17 14:59 04/01/17 22:48 Cetylpyridinium Chloride (Cepacol) 1 lozenge EVERY 2 HOURS PRN MARTINEZ Sore Throat 03/31/17 15:45 04/30/17 15:44 03/31/17 15:48 Finasteride (Proscar) 5 mg DAILY ORAL 03/31/17 19:30 04/30/17 19:29 04/01/17 09:15 Heparin Sodium (Porcine) (Heparin 5000 units/ml) 5,000 units EVERY 8 HOURS SUBQ 03/29/17 14:00 04/28/17 13:59 04/02/17 06:07 Hydralazine HCl (Apresoline) 10 mg Q4H PRN IV SBP above 150mmHg 03/29/17 14:00 04/28/17 13:59 04/01/17 23:56 Hydralazine HCl (Apresoline) 25 mg TID ORAL 04/02/17 09:00 05/02/17 08:59 Hydrochlorothiazide (Hydrodiuril) 25 mg DAILY ORAL 03/31/17 09:00 04/30/17 08:59 04/01/17 09:15 Hydromorphone HCl (Dilaudid) 1 mg Q4H PRN IVP Severe Breakthru Pain (>7) 03/29/17 14:00 04/05/17 13:59 Irbesartan (Avapro) 150 mg DAILY ORAL 03/30/17 09:00 04/29/17 08:59 04/01/17 09:15 Lactobacillus Acidophilus (Culturelle) 1 tab THREE TIMES A DAY ORAL 03/31/17 18:00 04/30/17 17:59 04/01/17 18:41 Metoclopramide HCl (Reglan) 10 mg Q6H PRN IVP Nausea & Vomiting 03/29/17 17:00 04/28/17 16:59 Ondansetron HCl (Zofran) 4 mg Q6H PRN IVP Nausea & Vomiting 03/29/17 16:00 04/28/17 15:59 Oxycodone/ Acetaminophen (Percocet 10/325) 1 tab Q4H PRN ORAL Moderate Pain (Pain Scale 4-6) 03/29/17 14:00 04/05/17 13:59 04/02/17 06:08 Oxycodone/ Acetaminophen (Percocet 10/325) 2 tab Q4H PRN ORAL Severe Pain (Pain Scale 7-10) 03/29/17 14:00 04/05/17 13:59 Pantoprazole (Protonix) 40 mg ACBREAKFAST ORAL 04/02/17 06:30 04/29/17 08:59 04/02/17 06:07 Piperacillin Sod/ Tazobactam Sod/ Dextrose (Zosyn/D5W) 110 ml @ 27.5 mls/hr EVERY 8 HOURS IVPB 03/29/17 14:00 04/05/17 13:59 04/02/17 06:07 Tamsulosin HCl (Flomax) 0.4 mg BID ORAL 03/29/17 18:00 04/28/17 17:59 04/01/17 18:41 Height (Feet): 5 Height (Inches): 5.00 Weight (Pounds): 138 Objective exam stable, less genital edema and ecchymosis OLIVIA SILVA Apr 02, 2017 07:33
[2017-04-02 07:54] VITALS: BP 150/78
[2017-04-02] MEDS: Tamsulosin 0.4mg cap ORAL SCH (08:36)
[2017-04-02] MEDS: HydrALAZINE 25mg tab ORAL SCH ×2 (08:36→13:10)
[2017-04-02] MEDS: Lactobacillus-GG tablet ORAL SCH ×2 (08:37→13:10)
[2017-04-02] MEDS: Irbesartan 150mg tablet ORAL SCH (08:37)
[2017-04-02 08:50] LABS: ANION GAP 11 (5-15); CALCIUM 9.1 mg/dL (8.6-10.2); CARBON DIOXIDE 27 mEQ/L (20-30); CHLORIDE 102 mEQ/L (98-107); HEMOLYSIS 2; POTASSIUM 3.1 mEQ/L (3.4-4.9); SODIUM 140 mEQ/L (135-145)
[2017-04-02 10:55] LABS: MAGNESIUM 1.5 mg/dL (1.7-2.5)
[2017-04-02] MEDS ORDERED: KCl 10% 40mEq/30ml liquid ORAL ONE (11:00)
[2017-04-02 11:24] VITALS: BP 122/61
[2017-04-02 15:17] VITALS: BP 147/83
--- NOTE | 2017-04-02 16:07 | Infectious Diseases Prog Note ---
Assessment/Plan Assessment/Plan ASSESSMENT AND PLAN: 1. appendicitis with sepsis and leukocytosis - s/p appendectomy - bacteroides bacteremia - continue zosyn - excellent anaerobic coverage - surveillance blood cultures - negative - can discharge on augmentin for one week - d/w Dr. Ortega 2. The patient has history of hypertension. Continue blood pressure treatment per primary 3. Pain management. 4. urinary retention and Krishnamurthy 5. Chronic obstructive pulmonary disease. 6. Past smoker. 7. Spinal stenosis. 8. Hyperlipidemia. 9. History of hyperglycemia and mild protein malnutrition. 10. History of multiple surgeries. 11. Allergy to latex. 12. Social, he is former smoker. 13. MAR was noted. 14. Case was discussed with RN. 15. Family history is noncontributory. 16. Case was discussed with Dr. Ortega 17. Case was discussed with Surgery. 18. Case was discussed with patient and questions were answered. Subjective Constitutional: Denies: fever HEENT: Denies: congestion Respiratory: Denies: shortness of breath Cardiovascular: Denies: chest pain Gastrointestinal/Abdominal: Denies: diarrhea, nausea, vomiting Genitourinary: Denies: dysuria, frequency, hematuria Neurologic: Denies: headache Psychiatric: Denies: depression Skin: Denies: rash Hematologic: Denies: bleeding Musculoskeletal: Denies: pain Allergies: Coded Allergies: LATEX (Verified Allergy, Unknown, Rash, 10/16/16) Objective Vital Signs Last 24 Hour Vital Signs Date Time Temp Pulse Resp B/P Pulse Ox O2 Delivery O2 Flow Rate FiO2 04/02/17 15:34 88 20 98 Room Air 04/02/17 15:24 86 20 96 Room Air 04/02/17 15:17 98.1 85 20 147/83 96 Room Air 04/02/17 13:10 122/61 04/02/17 12:00 85 04/02/17 11:24 98.3 83 20 122/61 96 Room Air 04/02/17 11:24 Room Air 04/02/17 11:17 84 20 95 Room Air 04/02/17 09:45 80 18 96 Room Air 04/02/17 09:45 Room Air 04/02/17 09:45 Room Air 04/02/17 09:45 93 Room Air 04/02/17 08:37 150/78 04/02/17 08:36 150/78 04/02/17 08:00 87 04/02/17 07:54 98.1 72 20 150/78 100 Room Air 04/02/17 04:00 72 04/02/17 03:52 98.3 85 20 140/72 95 Room Air 04/02/17 03:32 Room Air 04/02/17 03:31 Room Air 04/02/17 00:00 85 04/01/17 23:56 157/80 04/01/17 23:54 98.6 82 21 157/80 94 Room Air 04/01/17 23:05 80 18 97 Room Air 21 04/01/17 22:49 83 18 92 Room Air 21 04/01/17 20:05 80 19 95 Room Air 21 04/01/17 20:03 98.1 84 19 167/80 98 Nasal Cannula 04/01/17 20:00 78 04/01/17 19:50 Room Air 04/01/17 19:50 93 Room Air 04/01/17 19:50 79 17 93 Room Air 21 Height (Feet): 5 Height (Inches): 5.00 Weight (Pounds): 138 General Appearance: no acute distress HEENT: normocephalic, atraumatic, anicteric, mucous membranes moist, PERRL, EOMI, pharynx normal, supple, no JVD Respiratory/Chest: lungs clear, normal breath sounds, no respiratory distress, no accessory muscle use Cardiovascular: normal rate, regular rhythm, no gallop/murmur, no JVD Abdomen: normal bowel sounds, soft, non tender, no organomegaly, non distended Genitourinary: other - no krishnamurthy Extremities: no cyanosis Skin: no rash 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 There is evidence of inflammation involving surrounding structures such as the tip of the cecum and the origin of the terminal ileum which may be secondary to the appendicitis. However , it is possible that appendicitis a secondary phenomenon due to colitis and/or terminal ileitis, such as Crohn's. This is difficult to distinguish on imaging alone. Please correlate clinically. No evidence of abscess. chest x-ray - interstitial disease Microbiology Date/Time Source Procedure Growth Status 03/31/17 13:15 Blood Blood Culture - Preliminary NO GROWTH AFTER 24 HOURS Resulted 03/31/17 13:10 Blood Blood Culture - Preliminary NO GROWTH AFTER 24 HOURS Resulted Labs Test 04/01/17 04:40 04/02/17 07:55 White Blood Count 9.8 K/UL (4.8-10.8) Red Blood Count 3.31 M/UL (4.70-6.10) Hemoglobin 10.7 G/DL (14.2-18.0) Hematocrit 32.7 % (42.0-52.0) Mean Corpuscular Volume 99 FL (80-99) Mean Corpuscular Hemoglobin 32.2 PG (27.0-31.0) Mean Corpuscular Hemoglobin Concent 32.6 G/DL (32.0-36.0) Red Cell Distribution Width 14.0 % (11.6-14.8) Platelet Count 255 K/UL (150-450) Mean Platelet Volume 7.1 FL (6.5-10.1) Neutrophils (%) (Auto) 74.3 % (45.0-75.0) Lymphocytes (%) (Auto) 11.7 % (20.0-45.0) Monocytes (%) (Auto) 10.4 % (1.0-10.0) Eosinophils (%) (Auto) 3.1 % (0.0-3.0) Basophils (%) (Auto) 0.5 % (0.0-2.0) Sodium Level 144 mEQ/L (135-145) 140 mEQ/L (135-145) Potassium Level 3.2 mEQ/L (3.4-4.9) 3.1 mEQ/L (3.4-4.9) Chloride Level 104 mEQ/L (98-107) 102 mEQ/L (98-107) Carbon Dioxide Level 23 mEQ/L (20-30) 27 mEQ/L (20-30) Anion Gap 17 (5-15) 11 (5-15) Blood Urea Nitrogen 15 mg/dL (7-23) 13 mg/dL (7-23) Creatinine 1.0 mg/dL (0.7-1.2) 1.0 mg/dL (0.7-1.2) Estimat Glomerular Filtration Rate mL/min (>60) mL/min (>60) Glucose Level 69 mg/dL (74-106) 122 mg/dL (74-106) Calcium Level 9.1 mg/dL (8.6-10.2) 9.1 mg/dL (8.6-10.2) Magnesium Level 1.5 mg/dL (1.7-2.5) Pro-B-Type Natriuretic Peptide 686 pg/mL (0-125) Laboratory Tests Test 04/02/17 07:55 Sodium Level 140 mEQ/L (135-145) Potassium Level 3.1 mEQ/L (3.4-4.9) L Chloride Level 102 mEQ/L (98-107) Carbon Dioxide Level 27 mEQ/L (20-30) Anion Gap 11 (5-15) Blood Urea Nitrogen 13 mg/dL (7-23) Creatinine 1.0 mg/dL (0.7-1.2) Estimat Glomerular Filtration Rate mL/min (>60) Glucose Level 122 mg/dL (74-106) H Calcium Level 9.1 mg/dL (8.6-10.2) Magnesium Level 1.5 mg/dL (1.7-2.5) L Pro-B-Type Natriuretic Peptide 686 pg/mL (0-125) H Current Medications Medications (Trade) Dose Ordered Sig/Irish Route PRN Reason Start Time Stop Time Status Last Admin Dose Admin Acetaminophen (Tylenol) 650 mg Q4H PRN ORAL Mild Pain/Temp > 100.5 03/29/17 12:00 04/28/17 11:59 Albuterol/ Ipratropium (DuoNeb 0.5-3(2.5)mg/3ml) 3 ml Q4HRT HHN 03/29/17 15:00 04/03/17 14:59 04/02/17 15:21 Cetylpyridinium Chloride (Cepacol) 1 lozenge EVERY 2 HOURS PRN MARTINEZ Sore Throat 03/31/17 15:45 04/30/17 15:44 03/31/17 15:48 Finasteride (Proscar) 5 mg DAILY ORAL 03/31/17 19:30 04/30/17 19:29 04/02/17 08:36 Heparin Sodium (Porcine) (Heparin 5000 units/ml) 5,000 units EVERY 8 HOURS SUBQ 03/29/17 14:00 04/28/17 13:59 04/02/17 06:07 Hydralazine HCl (Apresoline) 10 mg Q4H PRN IV SBP above 150mmHg 03/29/17 14:00 04/28/17 13:59 04/01/17 23:56 Hydralazine HCl (Apresoline) 25 mg TID ORAL 04/02/17 09:00 05/02/17 08:59 04/02/17 13:10 Hydrochlorothiazide (Hydrodiuril) 25 mg DAILY ORAL 03/31/17 09:00 04/30/17 08:59 04/02/17 08:36 Hydromorphone HCl (Dilaudid) 1 mg Q4H PRN IVP Severe Breakthru Pain (>7) 03/29/17 14:00 04/05/17 13:59 Irbesartan (Avapro) 150 mg DAILY ORAL 03/30/17 09:00 04/29/17 08:59 04/02/17 08:37 Lactobacillus Acidophilus (Culturelle) 1 tab THREE TIMES A DAY ORAL 03/31/17 18:00 04/30/17 17:59 04/02/17 13:10 Metoclopramide HCl (Reglan) 10 mg Q6H PRN IVP Nausea & Vomiting 03/29/17 17:00 04/28/17 16:59 Ondansetron HCl (Zofran) 4 mg Q6H PRN IVP Nausea & Vomiting 03/29/17 16:00 04/28/17 15:59 Oxycodone/ Acetaminophen (Percocet 10/325) 1 tab Q4H PRN ORAL Moderate Pain (Pain Scale 4-6) 03/29/17 14:00 04/05/17 13:59 04/02/17 06:08 Oxycodone/ Acetaminophen (Percocet 10/325) 2 tab Q4H PRN ORAL Severe Pain (Pain Scale 7-10) 03/29/17 14:00 04/05/17 13:59 Pantoprazole (Protonix) 40 mg ACBREAKFAST ORAL 04/02/17 06:30 04/29/17 08:59 04/02/17 06:07 Piperacillin Sod/ Tazobactam Sod/ Dextrose (Zosyn/D5W) 110 ml @ 27.5 mls/hr EVERY 8 HOURS IVPB 03/29/17 14:00 04/05/17 13:59 04/02/17 13:11 Tamsulosin HCl (Flomax) 0.4 mg BID ORAL 03/29/17 18:00 04/28/17 17:59 04/02/17 08:36 HANNAH LONG Apr 02, 2017 16:07
[2017-04-02] MEDS ORDERED: Tubing IV Secondary IV ONE (17:17)
[2017-04-02] MEDS ORDERED: NS 275ml ONE (17:17)
--- NOTE | 2017-04-02 21:40 | Progress Note ---
DATE: 03/31/2017 CARDIOLOGY PROGRESS NOTE Late entry for 03/31/2017. SUBJECTIVE: The patient was seen and evaluated. The patient was unable to void. A Pratt catheter was replaced. The patient is tolerating a diet. He had a small bowel movement. The patient has not had fevers. He has had some abdominal pain. OBJECTIVE: VITAL SIGNS: Blood pressure up to 199/111, earlier 160/82, heart rate 82, respiratory rate 16, and afebrile. NECK: Supple. LUNGS: Clear. CARDIAC: Regular. Normal S1 and S2 with a fourth heart sound. ABDOMEN: Soft. Surgical site is without drainage. Slightly distended. Mildly tender. EXTREMITIES: Trace dependent edema. IMPRESSION: 1. Appendicitis, status post appendectomy. 2. Recovering bacteremia and leukocytosis. 3. Urinary retention. 4. Hypertensive urgency. 5. Chronic obstructive pulmonary disease. 6. Spinal stenosis. 7. Acute and chronic pain. PLAN: 1. Pain control. 2. Antimicrobials. 3. Await final cultures. 4. Keep Pratt in for now. 5. Continue tamsulosin. 6. Repeat voiding trial to follow. 7. Titrate antihypertensives. 8. Periodic diuresis based on clinical parameters. 9. Trend natriuretic peptide assay. Tawanda Ortega M.D. DR: CHARLEEN JOB#: [id number] CC:
--- NOTE | 2017-04-02 21:40 | Progress Note ---
DATE: 04/01/2017 INTERNAL MEDICINE AND CARDIOLOGY PROGRESS NOTE SUBJECTIVE: No shortness of breath. No chest pain. Swelling has resolved in the penile area and lower extremities. Abdominal pain improved. He still has a Pratt catheter in place. Bowel movements are adequate. Oral intake is good. OBJECTIVE: VITAL SIGNS: Blood pressure 157/80, pulse 82, and respirations 21. Oxygen saturation room air is 94% to 97%. NECK: Supple. LUNGS: Clear. CARDIAC: Regular. Normal S1 and S2 with a fourth heart sound. ABDOMEN: Soft. No focal tenderness. EXTREMITIES: Trace edema. LABORATORY DATA: Blood cultures, Bacteroides. White count 9.8 and hemoglobin 10.7. Potassium 3.2, BUN 15, and creatinine 1. IMPRESSION: 1. Status post appendectomy for acute appendicitis. 2. Bacteroides bacteremia. 3. Hypokalemia. 4. Hypertensive heart disease. 5. Accelerated blood pressure. 6. Urinary retention. 7. Postoperative anemia. PLAN: 1. Titrate antihypertensives. 2. Replace potassium as needed. 3. Recheck magnesium level. 4. Trend natriuretic peptide assay. 5. Diuresis based on clinical parameters. 6. Maintain tamsulosin. 7. Voiding trial to follow. 8. Continue intravenous antibiotics per Infectious Disease senior treasury consultant. Tawanda Ortega M.D. DR: CHARLEEN JOB#: [id number] CC:
--- NOTE | 2017-04-04 11:13 | Discharge Summary ---
Discharge Summary Hospital Course Date of Admission Mar 26, 2017 at 12:49 Date of Discharge Apr 02, 2017 at 17:18 Admitting Diagnosis sepsis,abdominal pain HPI Toan Hernandes is a 72 year old male who was admitted on Mar 26, 2017 at 12:49 for Sepsis, Abdominal Pain Hospital Course [id number] Discharge Discharge Disposition Patient was discharged to Home (01) Discharge Diagnoses: Vanessa Nichole NP Apr 04, 2017 11:13
--- NOTE | 2017-04-05 03:30 | Discharge Summary 2 SIG ---
DATE OF ADMISSION: 03/26/2017 DATE OF DISCHARGE: 04/02/2017 CONSULTANTS: 1. Cecy Hardwick M.D. 2. Zach Rivera M.D. 3. Robert Carter M.D. BRIEF HOSPITAL COURSE: The patient is a 72-year-old white male, who presented to the ED complaining of 2 days of progressive right lower quadrant abdominal pain with anorexia and nausea. The pain worsened and localized to the lower abdomen and periumbilical region. He had normal bowel movement with nausea, but no vomiting and had a fever. On evaluation at ED, WBC was elevated to 17.7 and lactic acid was 4.4. CT of the abdomen and pelvis showed evidence of acute appendicitis with evidence of inflammation surrounding the structures, which may be secondary to the appendicitis. However, possible appendicitis is secondary phenomenon due to colitis and or terminal ileitis. There was no evidence of abscess. He immediately was referred to Dr. Hardwick. Surgical consult and a laparoscopic appendectomy was done on 03/26/2017. He tolerated the procedure well and was given IV antibiotics Zosyn and vancomycin. The patient also had a variable rods in the blood culture. The patient had anaerobic bacteremia. Vancomycin was discontinued and surveillance blood cultures were done was negative. Postoperatively, he had difficulty with urination and had urinary retention requiring placement of Pratt catheter. He has a history of BPH and history of bladder calculi and had a procedure done 4 months ago by another urologist. Urinary retention was presumably secondary to combination of BPH related bladder outlet obstruction, possible atonic neurogenic bladder because of recent surgery, medications and lack of mobility. He had failed a number of voiding trials and has been given Flomax 0.4 mg twice a day. Finasteride was added. He was able to finally pass voiding trials and Pratt catheter was eventually removed on 04/02/2017. The patient knows how to self-catheterize and advice he can do self catheterization at home if needed. He will eventually need cystoscopy as outpatient. He was eventually discharged home. Advised to follow up as outpatient. FINAL DIAGNOSES: 1. Status post laparoscopic appendectomy for acute appendicitis. 2. Bacteroides bacteremia. 3. Hypokalemia. 4. Hypertensive heart disease. 5. Urinary retention. 6. Postoperative anemia. 7. Spinal stenosis. 8. Chronic obstructive pulmonary disease. 9. Hypertensive urgency. 10. Acute on chronic pain. 11. Benign prostatic hypertrophy. Tawanda Ortega M.D. I have been assigned to dictate discharge summary on this account and I was not involved in the patient's management. Vanessa Nichole N.P. DR: MARE JOB#: [id number] CC:
== END 2017-04-02 17:18 | disposition home or self-care (01) | DRG 854 ==
LOC: EMR 12:30 → 2W 12:49 → EDBEDREQ 14:17 → 2E 03-29 10:35
PROC: 0DTJ4ZZ Resection of Appendix, Percutaneous Endoscopic Approach (ICD-10-PCS; principal; 2017-03-26 16:00)
DX: A41.9 Sepsis, unspecified organism (principal); K35.80 Unspecified acute appendicitis; J44.9 Chronic obstructive pulmonary disease, unspecified; I50.9 Heart failure, unspecified; I11.0 Hypertensive heart disease with heart failure; E44.1 Mild protein-calorie malnutrition; I50.32 Chronic diastolic (congestive) heart failure; D64.9 Anemia, unspecified; N40.1 Benign prostatic hyperplasia with lower urinary tract symptoms; R33.8 Other retention of urine; R60.9 Edema, unspecified; E78.5 Hyperlipidemia, unspecified; M48.00 Spinal stenosis, site unspecified; E87.6 Hypokalemia; Z87.891 Personal history of nicotine dependence; I16.0 Hypertensive urgency; B96.6 Bacteroides fragilis [B. fragilis] as the cause of diseases classified elsewhere; G89.29 Other chronic pain
CPT/HCPCS: 36415; 36600; 71010; 74177; 80048; 80053; 81003; 82248; 82550; 82803; 83605; 83690; 83735; 83880; 84443; 84484; 85007; 85025; 85610; 85730; 87040; 87086; 87181; 93005; 93970; 94003; 94150; 94640; 94664; 94760; J2405; J2710; J3490; J7620

== ENCOUNTER 2017-12-02 09:11 | Day surgery (SDC) | payer MEDICARE ==
--- NOTE | 2017-11-27 21:30 | Pre-op HX & Phy Repo 2 SIG ---
DATE OF ADMISSION: 12/02/2017 DATE OF SURGERY: 12/02/2017 CHIEF COMPLAINT: Lump and discomfort in the right groin. HISTORY OF PRESENT ILLNESS: This is a 72-year-old male who was diagnosed with right inguinal hernia during his evaluation for appendicitis on 03/26/2017, but at that time, the patient was asymptomatic, but in the last three months, he has been experiencing discomfort and pain with standing and straining. The lump has gradually enlarged and it is present off and on. PAST MEDICAL HISTORY: He denies cardiac or renal diseases. He has a history of hypertension, borderline diabetes, COPD, and BPH. PAST SURGICAL HISTORY: Laparoscopy and appendectomy. MEDICATIONS: Hydrochlorothiazide, tamsulosin, and some medicine for cholesterol and COPD. ALLERGIES: He claims to be allergic to latex. SOCIAL HISTORY: This patient is a 72-year-old male, who lives in common law without any children. 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 REVIEW OF SYSTEMS: On reviewing the patient, besides the lump and discomfort in the right groin, the patient complaining of cough, back pain, and nocturia. PHYSICAL EXAMINATION: GENERAL: The patient appeared to be a well-developed, well-nourished, 72-year-old male, who walks with a cane. VITAL SIGNS: Blood pressure 169/91 and pulse rate is 78. HEENT: Head is normocephalic and atraumatic. Eyes, pupils are equal, round, and reactive to light. Mouth is clear. NECK: There is no palpable thyromegaly or adenopathy. CHEST: Clear to auscultation and percussion. HEART: Heart sounds are distant, but there is no gallop or murmur. S1 and S2 are within normal limits. ABDOMEN: Soft, flat, and nontender. There is no palpable organomegaly. Bowel sounds are audible. GENITAL: He had normal uncircumcised penis. His testicles are normal in shape and consistency, although he has a stage I left varicocele. He has a reducible right inguinal hernia, which extends up to his external ring. EXTREMITIES: Within normal limits. ASSESSMENT: Right inguinal hernia. PLAN: The patient has been scheduled for right inguinal herniorrhaphy on 12/02/2017. The risks and benefits have been explained to him. He understood and granted consent form. Cecy Hardwick M.D. DR: AKI JOB#: [id number] CC:
[~2017-12-02] VITALS: Ht 166.4 cm; Wt 62.1 kg
[2017-12-02] VITALS (10 sets, daily range): BP systolic 122–147; BP diastolic 56–86
[~2017-12-02 09:11] MED LIST changes: +SYMBICORT 80-10.2 G1 IH; +ceFAZolin sod 1gm in NS 55ml IVPB ONE
[2017-12-02] MEDS ORDERED: Bupivacaine 0.25% Inj 30ml INJ ONE (10:07)
[2017-12-02] MEDS ORDERED: Lidocaine 1% 10mg/ml/Epi 0.005mg/ml 30ml vial INJ ONE (10:08)
[2017-12-02 10:30] LABS: EOSINOPHILS % (AUTO) 2.7 % (0.0-3.0); HEMATOCRIT 41.8 % (42.0-52.0); HEMOGLOBIN 13.9 G/DL (14.2-18.0); MEAN CORPUSCULAR VOLUME 97 FL (80-99); MONOCYTES % (AUTO) 8.2 % (1.0-10.0); NEUTROPHILS % (AUTO) 72.1 % (45.0-75.0); PLATELET COUNT 210 K/UL (150-450); RED BLOOD COUNT 4.33 M/UL (4.70-6.10); RED CELL DISTRIBUTION WIDTH 12.9 % (11.6-14.8); WHITE BLOOD COUNT 6.9 K/UL (4.8-10.8)
[2017-12-02 10:43] LABS: ANION GAP 7 mmol/L (5-15); BLOOD UREA NITROGEN 26 mg/dL (7-18); CARBON DIOXIDE 26 MMOL/L (21-32); CHLORIDE 106 MMOL/L (98-107); POTASSIUM 3.6 MMOL/L (3.5-5.1); SODIUM 139 MMOL/L (136-145)
[2017-12-02] MEDS ORDERED: LR 1000ml 1,000 ML IVLG SCH (11:26)
--- NOTE | 2017-12-02 11:28 | Anethesia Preoperative Eval ---
Anesthesia Pre-op PMH/ROS General Date of Evaluation: Dec 02, 2017 Time of Evaluation: 12:01 Anesthesiologist: Lexi ASA Score: ASA 3 Mallampati Score Class I : Soft palate, uvula, fauces, pillars visible Class II: Soft palate, uvula, fauces visible Class III: Soft palate, base of uvula visible Class IV: Only hard plate visible Mallampati Classification: Class II Surgeon: Ronen Diagnosis: R Inguinal Hernia Surgical Procedure: R Inguinal Hernia Repair with Mesh Anesthesia History: none Social History: smoking Family History: no anesthesia problems Allergies: Coded Allergies: LATEX (Verified Allergy, Severe, Rash and skin starts to peel , 12/01/17) Medications: see eMAR Past Medical History Cardiovascular: Reports: HTN, other - HL Pulmonary: Reports: COPD Gastrointestinal/Genitourinary: Reports: other - BPH, Prostate CA, Diveticulitis Endocrine: Reports: DM PSxH Narrative: Appendectomy Anesthesia Pre-op Phys. Exam Physician Exam Last Vital Signs Date Time Temp Pulse Resp B/P (MAP) Pulse Ox O2 Delivery O2 Flow Rate FiO2 12/02/17 09:57 97.0 65 20 140/78 95 Room Air 97.0 Constitutional: NAD Neurologic: CN 2-12 intact Cardiovascular: RRR Respiratory: CTA Gastrointestinal: S/NT/ND Airway Exam Mallampati Score: Class II MO: limited ROM: limited Teeth: intact Anesthesia Pre-op A/P Labs Hematology Test 12/02/17 10:15 White Blood Count 6.9 K/UL (4.8-10.8) Red Blood Count 4.33 M/UL (4.70-6.10) L Hemoglobin 13.9 G/DL (14.2-18.0) L Hematocrit 41.8 % (42.0-52.0) L Mean Corpuscular Volume 97 FL (80-99) Mean Corpuscular Hemoglobin 32.1 PG (27.0-31.0) H Mean Corpuscular Hemoglobin Concent 33.2 G/DL (32.0-36.0) Red Cell Distribution Width 12.9 % (11.6-14.8) Platelet Count 210 K/UL (150-450) Mean Platelet Volume 9.4 FL (6.5-10.1) Neutrophils (%) (Auto) 72.1 % (45.0-75.0) Lymphocytes (%) (Auto) 16.0 % (20.0-45.0) L Monocytes (%) (Auto) 8.2 % (1.0-10.0) Eosinophils (%) (Auto) 2.7 % (0.0-3.0) Basophils (%) (Auto) 1.0 % (0.0-2.0) Coagulation Test 12/02/17 10:15 Prothrombin Time 10.0 SEC (9.30-11.50) Prothromb Time International Ratio 1.0 (0.9-1.1) Activated Partial Thromboplast Time 29 SEC (23-33) Chemistry Test 12/02/17 10:15 Sodium Level 139 MMOL/L (136-145) Potassium Level 3.6 MMOL/L (3.5-5.1) Chloride Level 106 MMOL/L (98-107) Carbon Dioxide Level 26 MMOL/L (21-32) Anion Gap 7 mmol/L (5-15) Blood Urea Nitrogen 26 mg/dL (7-18) H Creatinine 1.0 MG/DL (0.55-1.30) Estimat Glomerular Filtration Rate mL/min (>60) Glucose Level 124 MG/DL (74-106) H Calcium Level 9.0 MG/DL (8.5-10.1) Risk Assessment & Plan Assessment: ASA 3 Plan: GA, BIS, GlideScope Status Change Before Surgery: No Pre-Antibiotics Dru Gram Ancef IV Given Within 1 Hr of Incision: Yes Time Given: 12:16 Ken Elliott MD Dec 02, 2017 11:28
--- NOTE | 2017-12-02 11:29 | Immediate Post-Op Evaluation ---
Immediate Post-Op Evalulation Immediate Post-Op Evalulation Procedure: R Inguinal Hernia Repair with Mesh Date of Evaluation: Dec 02, 2017 Time of Evaluation: 13:39 IV Fluids: 700 LR Blood Products: 0 Estimated Blood Loss: 5 Urinary Output: 0 Blood Pressure Systolic: 146 Blood Pressure Diastolic: 83 Pulse Rate: 84 Respiratory Rate: 16 O2 Sat by Pulse Oximetry: 99 Temperature (Fahrenheit): 98.8 Pain Score (1-10): 2 Nausea: No Vomiting: No Complications 0 Patient Status: awake, reacts, patent, extubated, none Hydration Status: adequate Dru Gram Ancef IV Given Within 1 Hr of Incision: Yes Time Given: 12:16 Ken Elliott MD Dec 02, 2017 11:29
[2017-12-02] MEDS ORDERED: LORazepam Inj 2mg/ml 1ml IV PRN (11:30)
[2017-12-02] MEDS ORDERED: Norco 5mg/325mg tab ORAL PRN (11:30)
[2017-12-02] MEDS ORDERED: Ketorolac 30mg Inj IV PRN ×2 (11:30)
[2017-12-02] MEDS ORDERED: Midazolam 2mg/2ml Inj IVP PRN (11:30)
[2017-12-02] MEDS ORDERED: fentaNYL 100 mcg/2 mL IV PRN (11:30)
[2017-12-02] MEDS ORDERED: Atropine Inj 1mg/10ml Syr IV PRN (11:30)
[2017-12-02] MEDS ORDERED: Hydromorphone 0.5mg/0.5ml inj IVP PRN (11:30)
[2017-12-02] MEDS ORDERED: oxyCODONE HCL/Acetaminophen 5/325mg ORAL PRN (11:30)
[2017-12-02] MEDS ORDERED: DiphenhydrAMINE 50mg/ml Inj IVP PRN (11:30)
[2017-12-02] MEDS ORDERED: HYDROcodone/Acetamin 7.5/325 tab ORAL PRN (11:30)
[2017-12-02] MEDS ORDERED: Labetalol 5mg/ml 20ml vial IV PRN (11:30)
--- NOTE | 2017-12-02 11:39 | Diagnostic Imaging Report ---
Indication: Cough Technique: 2 views of the chest Comparison: 03/26/2017 Findings: Lungs are mildly hyperinflated. Lung pleural spaces are clear. There is mild thoracic scoliotic deformity. There is degenerative thoracic spondylosis. The heart size is normal. Impression: No acute process
[2017-12-02] MEDS ORDERED: Alfentanil 2ml Inj ONE (12:00)
[2017-12-02] MEDS ORDERED: Neostigmine 1mg/ml 10ml Inj ONE (12:00)
[2017-12-02] MEDS ORDERED: Glycopyrrolate 0.2mg/ml 1ml Vial ONE (12:00)
[2017-12-02] MEDS ORDERED: LR 1000ml ONE (12:00)
[2017-12-02] MEDS ORDERED: Lidocaine 1% MPF 10mg/ml 5ml ONE (12:00)
[2017-12-02] MEDS ORDERED: Propofol 200mg/20ml IV ONE (12:00)
[2017-12-02] MEDS ORDERED: Zemuron 50mg/5ml Inj IV ONE (12:00)
[2017-12-02] MEDS ORDERED: Midazolam 2mg/2ml Inj ONE (12:00)
--- NOTE | 2017-12-02 12:11 | Pre-Procedure Note/Attestation ---
Pre-Procedure Note/Attestation Complete Prior to Procedure Planned Procedure: right Procedure Narrative: Right Inguinal Herniorrhaphy Indications for Procedure Pre-Operative Diagnosis: Right Inguinal Hernia Attestation I attest that I discussed the nature of the procedure; its benefits; risks and complications; and alternatives (and the risks and benefits of such alternatives ), prior to the procedure, with the patient (or the patient's legal insurance claims representative). I attest that, if there was a reasonable possibility of needing a blood transfusion, the patient (or the patient's legal insurance claims representative) was given the [facility] standardized written summary, pursuant to the [place] Blood Safety Act ([place] Health and Safety Code # 1645, as amended). I attest that I re-evaluated the patient just prior to the surgery and that there has been no change in the patient's H&P, except as documented below: JAN POLLOCK Dec 02, 2017 12:11
[2017-12-02] MEDS ORDERED: Acetaminophen (Non formulary) 100 ML IV ONE (12:28)
--- NOTE | 2017-12-02 12:32 | 48 Hour Post Anesthesia Eval ---
Post Anesthesia Evaluation Procedure: R Inguinal Hernia Repair with Mesh Date of Evaluation: Dec 02, 2017 Time of Evaluation: 15:42 Blood Pressure Systolic: 146 0: 84 Pulse Rate: 67 Respiratory Rate: 18 Temperature (Fahrenheit): 98.6 O2 Sat by Pulse Oximetry: 97 Airway: patent Nausea: No Vomiting: No Pain Intensity: 2 Hydration Status: adequate Cardiopulmonary Status: Stable Mental Status/LOC: patient returned to baseline Follow-up Care/Observations: 0 Post-Anesthesia Complications: 0 Follow-up care needed: ready to discharge Ken Elliott MD Dec 02, 2017 12:32
--- NOTE | 2017-12-02 13:33 | Brief Operative Note ---
Immediate Post Operative Note Operative Note Pre-op Diagnosis: Right Inguinal Hernia Procedure: Right inguinal herniorrhaphy Post-op Diagnosis: same as pre-op Findings: consistent w/pre-op dx studies Surgeon: Rebecca Pollock MD Plate Grainer Apprentice: none Anesthesiologist: Dr. Elliott Anesthesia: general Specimen: yes Complications: none Condition: stable Fluids: Per anesthesiologist Estimated Blood Loss: minimal Drains: none Implant(s) used?: Yes JAN POLLOCK Dec 02, 2017 13:33
--- NOTE | 2017-12-02 13:35 | Discharge Instructions ---
Discharge Instructions Discharge Instructions Follow up with: my office one week Diet: 4 GM sodium (no salt added) Resume Normal Activity?: Yes Activity: as tolerated For Surgical Patients Dressing Care: other - will be removed by surgeon May shower: Yes For Congestive Heart Failure Reminder Report to your physician any weight gain of 5 pounds or more in one week. JAN POLLOCK Dec 02, 2017 13:35
--- NOTE | 2017-12-02 20:15 | Operative Note - Dictated ---
DATE OF OPERATION: 12/02/2017 PREOPERATIVE DIAGNOSIS: Right inguinal hernia. POSTOPERATIVE DIAGNOSIS: Right inguinal hernia. OPERATION: 1. Right inguinal herniorrhaphy with application of mesh. 2. Blockage of the nerves to the right groin for the postoperative pain control. COMPLICATIONS: None. SURGEON: Cecy Hardwick M.D. CIGAR ROLLER: None. ANESTHESIA: General with endotracheal tube. ANESTHESIOLOGIST: Ken Elliott M.D. INDICATIONS: This is a 72-year-old male, who presented with lump and discomfort in the right groin. A few months ago, he was diagnosed with right inguinal hernia, but recently he has been having discomfort with activity and walking. Physical examination showed reducible right inguinal hernia, which extended up to his external ring. DESCRIPTION OF PROCEDURE: The patient was placed supine on the operating table and after general anesthesia with endotracheal tube, the right groin was properly prepped and draped. Transverse right inguinal incision was given and was carried sharply through the subcutaneous tissue and Kay fascia. The aponeurosis of the external oblique was reached and was opened along its fibers towards the external ring. The spermatic cord was identified and isolated. Exploration of the cord was performed, which showed an indirect hernia sac protruding about two to three inches. This hernia sac was gradually dissected and isolated. At the base, it was transligated with 2-0 silk and the distal part was transected and removed. After this, the attention was given to the floor of the inguinal canal, which was bulging out. So, initially, a Yessica repair was performed with plication of the transversalis fascia with the help of the running suture of 2-0 silk from pubic tubercle towards the internal ring. After this repair, a piece of Prolene mesh was selected that was threaded to size of the floor of the inguinal canal. This mesh was secured in place with multiple interrupted suture of 2-0 Vicryl. The spermatic cord was passed through a small slit at the lower part of the mesh. During the dissection and repair, both ilioinguinal and iliohypogastric nerves were identified and preserved. After the application of the mesh, the incision was thoroughly irrigated with antibiotic solution and was infiltrated with total of 35 mL of Marcaine 0.25%. The nerves to the right groin were blocked with infiltration of 10 mL of Marcaine for the postoperative pain control. After the injection, the aponeurosis of the external oblique was approximated with running suture of 2-0 Vicryl. The subcutaneous tissue was approximated in two layers with 3-0 plain catgut. The skin incision, which was over three inches was approximated with running subcuticular suture of 4-0 chromic. The patient tolerated the procedure very well and was transferred to recovery room in stable condition and extubated. The sponge and needle count correct. Estimated blood loss 5 mL. Condition of the patient at the end of procedure was stable. Cecy Hardwick M.D. DR: Anu JOB#: [id number] CC:
--- NOTE | 2017-12-03 15:58 | Cardiology Report ---
APPROVED REPORT EKG Measurement Heart [id number] Normal sinus rhythm Left anterior fascicular block Abnormal ECG
== END 2017-12-02 15:00 | disposition home or self-care (01) ==
LOC: SUR 09:11
DX: K40.90 Unilateral inguinal hernia, without obstruction or gangrene, not specified as recurrent (principal); I44.4 Left anterior fascicular block; I10 Essential (primary) hypertension; J44.9 Chronic obstructive pulmonary disease, unspecified; E11.9 Type 2 diabetes mellitus without complications; Z87.891 Personal history of nicotine dependence; K57.90 Diverticulosis of intestine, part unspecified, without perforation or abscess without bleeding; I86.1 Scrotal varices; Z85.46 Personal history of malignant neoplasm of prostate; Z91.040 Latex allergy status; Z90.89 Acquired absence of other organs
CPT/HCPCS: 36415; 49505; 64425; 71046; 80048; 82962; 85025; 85610; 85730; 93005; C1781; J0690; J1885; J2250; J2405; J2704; J2710; J3490; J7120; 94003; 94150